=== PATIENT | female | born 1940 | race Caucasian/White ===

== ENCOUNTER 2017-10-28 11:20 | Day surgery (SDC) | payer MEDICARE, BC ==
[2017-10-25 13:30] VITALS: BMI 22.3
[2017-10-28] MEDS ORDERED: Propofol 200 MG/20 ML VIAL ONE (16:18)
--- NOTE | 2017-10-28 17:13 | OP ---
PREOPERATIVE DIAGNOSES: 1. History of polyposis syndrome. 2. History of greater than 10 polyps, colonoscopy last year. 3. History of malignant polyp in the past. POSTOPERATIVE DIAGNOSES: 1. Nine polyps scattered from the cecum to the sigmoid colon, removed by snare polypectomy and submi tted to Pathology. 2. One polyp site bleeding, Hemoclip placed to control hemorrhage. RECOMMENDATIONS: 1. Await histopathology. 2. Repeat colonoscopy in 1 year. ANESTHESIA: TIVA. PROCEDURE IN DETAIL: After the patient was informed of the risks, benefits, possible complications o f endoscopy including perforation, bleeding, reactions to medication and aspiration, informed consent was obtained. The patient was brought to endoscopy suite where she was sedated in gradual fashion. Once she was comfortable, a bite block was placed in incisural orifice. Once she was comfortable, r ectal examination was performed. The endoscope was advanced through anal canal through the colon. T he cecum was identified by ileocecal valve and appendiceal orifice. The scope was then slowly remove d. There was good visualization of mucosa. There were 4 polyps in the cecum, which were removed by snare polypectomy and submitted to Pathology. There were 2 in the ascending colon that removed by sn are polypectomy and submitted to Pathology. There was 1 in the transverse colon, removed by snare po lypectomy and submitted to Pathology and there were 2 in the sigmoid, removed by snare polypectomy an d submitted to Pathology. Retroflexed views in the rectum were normal. There was diverticulosis col i. The scope was removed and the patient was brought to recovery room in stable condition.
== END 2017-10-29 16:17 | disposition home or self-care (01) ==
LOC: SDC 11:20
PROVIDERS: ATTEND Internal Medicine Gastroenterology
PROC: 0DBK8ZX Excision of Ascending Colon, Via Natural or Artificial Opening Endoscopic, Diagnostic (ICD-10-PCS; principal; 2017-10-28)
PROC: 0DBN8ZX Excision of Sigmoid Colon, Via Natural or Artificial Opening Endoscopic, Diagnostic (ICD-10-PCS; 2017-10-28)
PROC: 0DBH8ZX Excision of Cecum, Via Natural or Artificial Opening Endoscopic, Diagnostic (ICD-10-PCS; 2017-10-28)
DX: Z12.11 Encounter for screening for malignant neoplasm of colon (principal); D12.3 Benign neoplasm of transverse colon; D12.5 Benign neoplasm of sigmoid colon; D12.0 Benign neoplasm of cecum; D12.2 Benign neoplasm of ascending colon; K57.30 Diverticulosis of large intestine without perforation or abscess without bleeding; I25.10 Atherosclerotic heart disease of native coronary artery without angina pectoris; J44.9 Chronic obstructive pulmonary disease, unspecified; E78.00 Pure hypercholesterolemia, unspecified; I10 Essential (primary) hypertension; I25.2 Old myocardial infarction; Z79.82 Long term (current) use of aspirin; Z79.899 Other long term (current) drug therapy; Z88.2 Allergy status to sulfonamides; Z88.8 Allergy status to other drugs, medicaments and biological substances; Z98.42 Cataract extraction status, left eye; Z98.41 Cataract extraction status, right eye; Z96.1 Presence of intraocular lens; Z98.890 Other specified postprocedural states; Z86.010 Personal history of colon polyps; Z87.891 Personal history of nicotine dependence; Z85.820 Personal history of malignant melanoma of skin
CPT/HCPCS: 88305; J2704

== ENCOUNTER 2018-12-31 09:12 | Outpatient (CLI) | payer MEDICARE, BC ==
--- NOTE | 2018-12-31 10:02 | RAD ---
TWO VIEW CHEST: Date: 12-31-18 Indication: Cough. FINDINGS: Lungs are hyperinflated. There is focal nodular density overlying the infralateral right chest. There is blunting of the posterior costophrenic sulci. Cardiac silhouette is of normal size. IMPRESSION: 1. COPD. 2. Nodular density overlying the inferolateral right chest. This may relate to a nipple shadow. Recom mend follow up with nipple markers in place for confirmation. Code T POS: IGNACIO
== END 2018-12-31 09:13 | disposition home or self-care (01) ==
LOC: SCSRAD 09:12
PROVIDERS: ATTEND Family Medicine
DX: J44.9 Chronic obstructive pulmonary disease, unspecified (principal); R05 Cough; J98.4 Other disorders of lung
CPT/HCPCS: 71046

== ENCOUNTER 2019-01-12 07:20 | Day surgery (SDC) | payer MEDICARE, BC ==
[2019-01-09 10:42] VITALS: BMI 22.1
--- NOTE | 2019-01-12 11:52 | OP ---
DATE OF PROCEDURE: 01/12/2019 PREPROCEDURE DIAGNOSES: 1. Prior history of malignant polyp. 2. History of polyposis syndrome. 3. Chronic obstructive pulmonary disease. POSTOPERATIVE DIAGNOSES: 1. Flat polyp was noted at the previous scar site at the just across the ileocecal valve at the level of the transition between the cecum and ileocecal valve. This was removed by hot snare polypectomy. 2. Smaller polyps were noted in the ascending colon, both removed by hot snare polypectomy 1. There is a bit of a burn to the mucosa and a clip was placed over this area. There was no signs of perforation. One more polyp was removed and retrieved from the descending colon and 2 small polyps were noted in the sigmoid and rectum, which were ablated. There was mild diverticulosis coli. No other lesions were seen. RECOMMENDATIONS: Await histopathology. Consider repeat colonoscopy 1 to 2 years based on pathology report. ANESTHESIA: TIVA. PROCEDURE IN DETAIL: The patient was informed of the risks, benefits, and possible complications of endoscopy including perforation, reaction to medication, and aspiration, informed consent was obtained. The patient was brought to the endoscopy suite, where she was sedated in gradual fashion. Once she was comfortable, a bite block was placed inside her orifice. The endoscope was advanced to the esophagus, stomach, and second and third portion of the duodenum and slowly removed. There was good visualization of the mucosa. There was no mass, lesions, or AV malformations. The colon was tortuous in the sigmoid region, diverticulosis was noted. The prep was good. The cecum was reached and noted by the ileocecal valve and appendiceal orifice. The scope was then slowly removed. There was a polyp at the distal proximal ileocecal valve, an area of slight scar consistent with probably a recurrent previous polypectomy site. This was removed by hot snare polypectomy and the lesion seemed completely removed. Another polyp was noted in the mid proximal ascending colon, freed by hot snare polypectomies about 5 mm in size. There was a little bit of serosal burn in this area. Therefore, clip was placed over the area. Normal tissue grasped and heaped up. There was no signs of perforation. Descending colon polyp was removed and submitted to Pathology and then 2 sigmoid and rectosigmoid polyps removed by hot snare polypectomy, abated, but not retrieved. Retroflexed views were normal. The scope was removed. The patient tolerated the procedure well without complications. Job ID: [id number]
== END 2019-01-12 10:26 | disposition home or self-care (01) ==
LOC: SDC 07:20
PROVIDERS: ATTEND Internal Medicine Gastroenterology
PROC: 0DBK8ZX Excision of Ascending Colon, Via Natural or Artificial Opening Endoscopic, Diagnostic (ICD-10-PCS; principal; 2019-01-12)
PROC: 0DBN8ZX Excision of Sigmoid Colon, Via Natural or Artificial Opening Endoscopic, Diagnostic (ICD-10-PCS; 2019-01-12)
PROC: 0DBP8ZZ Excision of Rectum, Via Natural or Artificial Opening Endoscopic (ICD-10-PCS; 2019-01-12)
PROC: 0DBH8ZX Excision of Cecum, Via Natural or Artificial Opening Endoscopic, Diagnostic (ICD-10-PCS; 2019-01-12)
PROC: 0DBM8ZX Excision of Descending Colon, Via Natural or Artificial Opening Endoscopic, Diagnostic (ICD-10-PCS; 2019-01-12)
DX: Z12.11 Encounter for screening for malignant neoplasm of colon (principal); D12.2 Benign neoplasm of ascending colon; D12.4 Benign neoplasm of descending colon; K63.5 Polyp of colon; J44.9 Chronic obstructive pulmonary disease, unspecified; K57.30 Diverticulosis of large intestine without perforation or abscess without bleeding; E78.5 Hyperlipidemia, unspecified; I10 Essential (primary) hypertension; I25.2 Old myocardial infarction; I25.10 Atherosclerotic heart disease of native coronary artery without angina pectoris; E78.00 Pure hypercholesterolemia, unspecified; Z86.010 Personal history of colon polyps; Z87.19 Personal history of other diseases of the digestive system; Z87.891 Personal history of nicotine dependence; Z79.899 Other long term (current) drug therapy; Z88.2 Allergy status to sulfonamides; Z88.5 Allergy status to narcotic agent
CPT/HCPCS: 88305

== ENCOUNTER 2019-01-17 15:49 | Inpatient (IN) | payer MEDICARE, BC ==
[2019-01-17] MEDS ORDERED: Magnesium Sulfate 2 GM/NS 0.9% 50 ML BAG ONE (16:20)
[2019-01-17] MEDS ORDERED: methylPREDNISolone Sod Succ/PF 125 MG/2 ML VIAL ONE (16:20)
[2019-01-17] MEDS ORDERED: cefTRIAXone\\ROCEPHIN 1 GM VIAL ONE (16:20)
[2019-01-17] MEDS ORDERED: Water For Inject, Bacteriostat 30 ML ONE (16:21)
[2019-01-17 16:25] LABS: #Basophils 0.2 thou/uL (0.0-0.2); #Lymphocytes 0.8 thou/uL (1.20-3.40); #Monocytes 0.8 thou/uL (0.11-0.59); #Neutrophils 13.7 thou/uL (1.40-6.50); %Eosinophils 0.1 % (0.0-10.0); %Monocytes 5.4 % (0.0-10.0); %Neutrophils 88.5 % (42.0-75.0); Hemoglobin 14.9 g/dL (12.0-16.0); Mean Corpuscular HGB CONC 33.3 g/dL (32.0-36.0); Mean Corpuscular Hemoglobin 31.8 pg (27.0-31.0); Mean Corpuscular Volume 95.3 fL (78.0-98.0); Mean Platelet Volume 9.7 fL (7.4-10.4); Platelet Count 205 thou/uL (130-400); RBC Distribution Width 12.8 % (11.5-14.5); White Blood Cell (WBC) Count 15.5 thou/uL (4.8-10.8)
[2019-01-17 16:38] LABS: ALT (SGPT) 10 U/L (8-55); AST (SGOT) 11 U/L (5-34); Albumin 3.8 g/dL (3.4-4.8); Alkaline Phosphatase 91 U/L (40-150); Anion Gap 18 mmol/L (10-20); BUN (Urea Nitrogen) 17 mg/dL (9.8-20.1); Bilirubin, Total 1.3 mg/dL (0.2-1.2); CK (CPK) 56 U/L (29-168); Calc. Creatinine Clearance 0 mL/min (70-130); Calcium 10.1 mg/dL (7.8-10.44); Carbon Dioxide 25 mmol/L (23-31); Chloride 98 mmol/L (98-107); Estimated GFR-MDRD 58; Globulin 3.7 g/dL (2.4-3.5); Glucose 154 mg/dL (83-110); Potassium 4.4 mmol/L (3.5-5.1); Protein, Total 7.5 g/dL (6.0-8.3); Sodium 137 mmol/L (136-145)
--- NOTE | 2019-01-17 16:45 | RAD ---
CHEST ONE VIEW: 01/17/19 HISTORY: Dyspnea. FINDINGS: Cardiac silhouette is magnified by projection. Pulmonary vasculature is unremarkable. Lungs remain h yperinflated. Mediastinum is midline with aortic calcification. No lobar consolidation. Calcified gra nulomata are consistent with healed granulomatous disease. monitor worker leads overlie the chest. IMPRESSION: Pulmonary hyperinflation. Chronic type findings are stable. POS: [facility]
[2019-01-17] MEDS ORDERED: Ondansetron PF 4 MG/2 ML Vial IVP PRN (18:28)
[2019-01-17] MEDS ORDERED: Acetaminophen 325 MG TAB PO PRN (18:28)
[2019-01-17] MEDS ORDERED: D5 1/2 NS w/20 mEq KCL 1,000 ML IV SCH (18:30)
[2019-01-17] MEDS ORDERED: Albuterol Sulfate 2.5 mg/0.5 ml Neb NEB PRN (18:32)
--- NOTE | 2019-01-17 21:17 | HP ---
PRIMARY CARE PHYSICIAN: Dr. Levi Rodrigues. CHIEF COMPLAINT: Cough and shortness of breath. HISTORY OF PRESENT ILLNESS: This is an 78-year-old female, patient of Dr. Levi Rodrigues, with a long history of COPD and hypertension, several admissions in the past for COPD exacerbation, presents to the emergency department today with complaints of worsening shortness of breath. The patient is followed by Dr. Chapa on an outpatient for her COPD. She was recently seen in Dr. Levi Rodrigues's office on 12/30/2018 with upper respiratory type symptoms. She was treated for maxillary sinusitis with Levaquin and prednisone taper. A chest x-ray was done at that time, which showed no active disease and she apparently recovered over the past several days. She and her [id number] state that she has been getting more and more short of breath, having more problems with breathing. In the emergency department, she was found to be severely hypoxic, down to the 80%. She was started on BiPAP by the ER physician and had significant improvement of her symptoms. She was also given steroids, neb treatments, and oxygen therapy and she is feeling much better at this time. She is now being admitted for further evaluation and treatment of her COPD exacerbation. PAST MEDICAL HISTORY: COPD, known coronary artery disease, peripheral vascular disease, hypertension, and memory loss with Alzheimer dementia. MEDICATIONS: Include, 1. Namenda 10 mg daily. 2. Recent prednisone taper. 3. Centrum Silver daily. 4. Aspirin 81 mg daily. 5. Vitamin E one daily. 6. Glucosamine daily. 7. Spiriva daily. 8. Calcium with vitamin D daily. 9. Symbicort 160/4.5 daily. 10. Simvastatin 20 mg daily. 11. Amlodipine 5 mg daily. 12. Furosemide 40 mg daily p.r.n. 13. ProAir p.r.n. 14. Ipratropium-albuterol p.r.n. ALLERGIES: TO VALIUM AND NARCOTICS. IMMUNIZATIONS: Flu shot is up-to-date. Pneumonia and Prevnar, up-to-date. PAST SURGICAL HISTORY: Colonoscopy in 2007. Last colonoscopy in December 2018 for polyposis syndrome and history of malignant polyp. FAMILY HISTORY: Father with heart disease. Mother with possible heart disease as well. SOCIAL HISTORY: Quit smoking in 2012. No drugs. No other alcohol use. She is a retired marketing secretary. She is . She has children, who live next door, but she lives alone most of the time. REVIEW OF SYSTEMS: As per the history of present illness. CONSTITUTIONAL: She denies any recent fevers or chills. HEENT: She does have a recent episode of sinusitis 2 to 3 weeks ago. CARDIAC: Denies chest pain or palpitations. PULMONARY: Positive cough. Positive shortness of breath. Positive dyspnea on exertion. GI: No nausea, vomiting, abdominal pain, melena, or hematochezia. : Denies dysuria. NEUROLOGIC: No weakness, seizures, or syncope. PHYSICAL EXAMINATION: VITAL SIGNS: Temperature 98.1, pulse of 92, respirations 27, pulse ox is 97% on BiPAP, and blood pressure 130/80. GENERAL: She is awake and alert. She is in moderate distress with her breathing. HEENT: Her mucosa is moist. NECK: Supple. No JVD or adenopathy. HEART: Tachycardic. LUNGS: With prolonged expiratory phase with rhonchi and expiratory wheezes bilaterally. ABDOMEN: Soft, nontender, nondistended. No hepatosplenomegaly. EXTREMITIES: No clubbing, cyanosis, or edema. 2+ peripheral pulses bilaterally. No calf tenderness. LABORATORY DATA: Sodium 137, potassium 4.4, chloride 98, CO2 of 25, BUN and creatinine are 17 and 0.93 with a GFR of 58, serum glucose of 154, lactic acid of 2.1, and calcium of 10.1. AST and ALT are normal. Troponin I is less than 0.01. White blood cell count 15,500, hemoglobin and hematocrit are 14.9 and 44.8, and platelets of 205. IMAGING DATA: Again, chest x-ray showed pulmonary hyperinflation and chronic changes, no acute pneumonia. ASSESSMENT/PLAN: 1. This is an 78-year-old female patient with chronic obstructive pulmonary disease exacerbation. Plan; agree with BiPAP, hopefully just overnight and we would be able to wean in the morning. Await Pulmonary evaluation. Continue steroids, antibiotic, and neb treatment as well as oxygen therapy. 2. History of familial polyposis. Follow up with Dr. Campuzano as an outpatient. 3. Dementia. We will continue Namenda at this time. 4. Hypertension. We will continue her amlodipine and clonidine p.r.n. We will hold off on beta-jerald due to her chronic obstructive pulmonary disease exacerbation. 5. Coronary artery disease, appears to be stable. We will continue simvastatin and aspirin. 6. Deep venous thrombosis prevention with subcu Lovenox. 7. Gastrointestinal protection with Protonix. 8. Code status discussed with the patient, [id number], and son and she desires to be a full code and states that medical power of contracts attorney and advanced directives are in place. 9. Disposition. Hopefully, will be able to discharge home soon. We will arrange home health for further assistance. Job ID: [id number]
[2019-01-17] MEDS: methylPREDNISolone Sod Succ/PF 125 MG/2 ML VIAL IVP SCH (21:25)
[2019-01-17] MEDS: Atorvastatin Calcium 10 MG TAB PO SCH (21:26)
[2019-01-18] MEDS: methylPREDNISolone Sod Succ/PF 125 MG/2 ML VIAL IVP SCH (03:29)
[2019-01-18 04:06] LABS: Bilirubin Negative (Negative); Blood, Urine Negative (Negative); Clarity CLEAR (Clear); Glucose, Urine (Dipstick) Negative (Negative); Leukocyte Trace (Negative); Nitrite Negative (Negative); Protein, Urine (Dipstick) 30 mg/dL (Neg-Trace); Specific Gravity, Urine 1.025 (1.002-1.036); pH, Urine 5.5 (5.0-9.0)
[2019-01-18 04:11] LABS: Bacteria/HPF None Seen HPF (None Seen); Squamous Epithelial 0-3 HPF (0-3)
[2019-01-18 04:18] LABS: Pathc Cast-AUWi Flag 2.61 (0-2.49)
[2019-01-18 04:46] LABS: Other Casts/LPF None Seen LPF (0-3 Hyaline); RBC/HPF 0-3 HPF (0-3)
[2019-01-18 04:47] LABS: Renal Epithelial 0-3 HPF (0-3); Transitional Epithelial NONE SEEN HPF (0-3)
[2019-01-18 07:08] LABS: Anion Gap 16 mmol/L (10-20); BUN (Urea Nitrogen) 23 mg/dL (9.8-20.1); Calc. Creatinine Clearance 45 mL/min (70-130); Calcium 8.9 mg/dL (7.8-10.44); Carbon Dioxide 22 mmol/L (23-31); Chloride 104 mmol/L (98-107); Estimated GFR-MDRD 68; Glucose 149 mg/dL (83-110); Potassium 4.8 mmol/L (3.5-5.1); Sodium 137 mmol/L (136-145)
--- NOTE | 2019-01-18 08:39 | RAD ---
CHEST 1 VIEW: Date: 01/18/19 HISTORY: COPD. Dyspnea. Follow-up. COMPARISON: 01/17/19. FINDINGS: Cardiac silhouette is magnified by projection. Pulmonary vasculature is unremarkable. Lungs remain hy perinflated with flattening of each hemidiaphragm. No evidence of pneumothorax. Mediastinum is midlin e with aortic calcification. quality assurance monitor body leads overlie the chest. IMPRESSION: Pulmonary hyperinflation. Chronic-type findings are stable. POS: [facility]
[2019-01-18] MEDS ORDERED: Vitamin E 400 UNITS CAP PO SCH (09:00)
[2019-01-18] MEDS ORDERED: Amlodipine 5 MG TAB PO SCH (09:00)
[2019-01-18] MEDS ORDERED: Aspirin Chewable 81 MG TAB PO SCH (09:00)
[2019-01-18] MEDS: Enoxaparin Sodium 40 MG/0.4 ML SYRINGE SC SCH (09:13)
[2019-01-18 09:16] LABS: #Lymphocytes 0.4 thou/uL (1.20-3.40); #Monocytes 0.1 thou/uL (0.11-0.59); #Neutrophils 9.1 thou/uL (1.40-6.50); %Basophils 0.2 % (0.0-1.0); %Eosinophils 0.1 % (0.0-10.0); %Lymphocytes 4.3 % (21.0-51.0); %Monocytes 1.1 % (0.0-10.0); %Neutrophils 94.3 % (42.0-75.0); Hemoglobin 12.9 g/dL (12.0-16.0); Mean Corpuscular HGB CONC 31.3 g/dL (32.0-36.0); Mean Corpuscular Hemoglobin 31.6 pg (27.0-31.0); Mean Platelet Volume 9.2 fL (7.4-10.4); Platelet Count 195 thou/uL (130-400); RBC Distribution Width 12.3 % (11.5-14.5); Red Blood Cell (RBC) Count 4.08 mill/uL (4.20-5.40); White Blood Cell (WBC) Count 9.6 thou/uL (4.8-10.8)
--- NOTE | 2019-01-18 10:45 | PRG ---
DATE OF SERVICE: 01/18/2019 SUBJECTIVE: The patient is feeling significantly better. She continues to have some conversational dyspnea, but overall her breathing more at ease. Denies chest pain. Improved cough. No fevers or chills. OBJECTIVE: VITAL SIGNS: Temperature 96.9, pulse is 73, respirations 22, blood pressure 131/54, and pulse ox is 95% on 2 L. GENERAL: She is awake and alert. Mild conversational dyspnea. NECK: Supple. Some retractions. HEART: Regular rate and rhythm. LUNGS: Distant, but no wheeze, rales, or rhonchi. ABDOMEN: Soft. EXTREMITIES: No edema. LABORATORY DATA: White blood cell count down to 9600, hemoglobin and hematocrit 12.9 and 41.2, and platelets of 195. Sodium 137, potassium 4.8, chloride 104, CO2 of 22, BUN and creatinine 23 and 0.81 with a GFR of 68, serum glucose of 149, and calcium of 8.9. IMAGING DATA: Chest x-ray reveals hyperinflated lungs, no infiltrate. ASSESSMENT AND PLAN: This is an 78-year-old female patient with known chronic obstructive pulmonary disease, admitted with chronic obstructive pulmonary disease exacerbation, respiratory distress, and hypoxemia. 1. Chronic obstructive pulmonary disease exacerbation has improved. She is able to wean off the BiPAP. We will continue steroids, antibiotic, and neb treatments and oxygen. 2. History of familial polyposis. Follow up with Dr. Campuzano as an outpatient. 3. Hypertension is stable. We will continue to hold off her beta-blockers. 4. Coronary artery disease is stable on simvastatin and aspirin. 5. Continue GI protection with Protonix as she is on steroids. 6. Disposition. Family does want home health. We will have case management work with her on that and transfer to the floor while she continues to improve. Job ID: [id number]
[2019-01-18] MEDS ORDERED: Iopamidol 370 76% 50 ML VIAL FS ONE (10:51)
[2019-01-18] MEDS ORDERED: ISOVUE-370 76%-LOCM 1 ML ONE (10:51)
[2019-01-18] MEDS ORDERED: metroNIDAZOLE 500 MG in Premix Bag 1 BAG IVPB SCH (14:15)
[2019-01-18] MEDS: Fentanyl 100 MCG/2 ML VIAL SLOW IVP PRN ×2 (14:19→17:19)
[2019-01-18] MEDS ORDERED: PHENYLEPHRINE-NS 100 MCG/ML 10 ML SYRINGE ONE (14:38)
[2019-01-18] MEDS ORDERED: Rocuronium Bromide 10 MG/ML (10ML VIAL) ONE (14:38)
[2019-01-18] MEDS ORDERED: Succinylcholine Chloride 20 MG/ML 10 ml SYRINGE FS ONE (14:38)
--- NOTE | 2019-01-18 16:19 | CON ---
DATE OF CONSULTATION: 01/18/2019 SERVICE: Pulmonary Medicine. REASON FOR CONSULTATION: IMCU patient. HISTORY OF PRESENT ILLNESS: The patient is an 78-year-old white female with past medical history significant for dementia and severe COPD. She is in her usual state of health until about 4 to 5 days prior to admission when she basically had an aversion for food. Her family takes very good care of her. They put a meal in front of her every single day. Roughly 3 days ago, she stopped taking any p.o. intake, whatsoever. She was doing fine until she started having some abdominal discomfort about 2 days prior to presentation. She indicates having a little nausea without vomiting. She denies having passed any gas or having any bowel movements. The history is a little bit challenging to get because she does have some cognitive impairment, and I am relying on family members to help me with this. Either way , she started having increasing difficulty with breathing. There was concern for COPD exacerbation, she was subsequently tucked into the [facility] on BiPAP. She currently denies any fevers or chills, otherwise. She had a little bit of food. She did not eat much of it, however. PAST MEDICAL HISTORY: 1. COPD, severe. 2. Coronary artery disease. 3. Peripheral vascular disease. 4. Hypertension. 5. Dementia. PAST SURGICAL HISTORY: Colonoscopy. FAMILY HISTORY: Noncontributory. SOCIAL HISTORY: She has a greater than [id number]-[id number] history of smoking, but quit in 2012. She denies any alcohol or illicit drugs. She is a retired company secretary. She has no exposure to chemicals, dust, asbestos, or tuberculosis. ALLERGIES: 1. VALIUM. 2. NARCOTICS. MEDICATIONS: List of her inpatient medications was reviewed. Multiple updates were made. REVIEW OF SYSTEMS: General; head, ears, eyes, nose, throat; cardiovascular; respiratory; GI; ; musculoskeletal; neurologic; and skin are negative except as mentioned in the HPI. PHYSICAL EXAMINATION: VITAL SIGNS: Afebrile, pulse 100, blood pressure 152/65, respirations 37, saturation 96% on 2 L nasal cannula. GENERAL: The patient is awake and alert, in no apparent distress. LUNGS: Very reduced air entry. There is a prolonged expiratory phase. I do not hear any wheezing or crackles. HEART: Normal rate, regular. ABDOMEN: Soft. It is tender to palpation throughout, but more severe in the right lower quadrant. She has peritoneal signs including rebound and pain with percussion of the right lower quadrant. Bowel sounds are absent. : No Damon catheter. NEUROLOGIC: Grossly nonfocal. LABORATORY DATA: WBC 9.6, down from 15.5. Neutrophil count is actually 94%. Hemoglobin 12.9, platelets 195,000. Creatinine 0.81. Basic metabolic profile is otherwise unremarkable. Lactate is unremarkable. Urinalysis is unremarkable. Blood cultures x2 and influenza A and B are negative. IMAGING DATA: Chest x-ray demonstrates no acute cardiopulmonary abnormality. There is hyperexpansion of bilateral lung shay. ASSESSMENT: 1. Acute hypoxic respiratory failure. 2. Chronic obstructive pulmonary disease with acute exacerbation. 3. Abdominal pain in the right lower quadrant with peritoneal signs. DISCUSSION AND PLAN: My fear is that she has appendicitis. We are going to do a CT of the abdomen with p.o. and IV contrast, so we can delineate whether or not there is any abnormality there. If so, Surgical consultation will be placed. We will start treating the COPD exacerbation with antibiotics, nebulized medications, and steroids. I will start the antibiotics directed in abdominal process. The patient has horrendous COPD. As such, belly infection is more than enough to create an exacerbation. I think her physical exam findings might be blunted by her dementia and the very significant dose of steroids that she was receiving. Pulmonary/Critical Care will continue to follow along in this location. 70 minutes have been devoted to this patient in various activities. I personally reviewed all imaging studies and laboratory data noted within this document. For fifty percent of this time, I was interacting with the patient at the bedside or coordinating care with the care team. For the remainder of the time I was immediately available to the patient in the hospital unit. Job ID: [id number] [facility]
--- NOTE | 2019-01-18 17:19 | CT ---
CT ABDOMEN AND PELVIS WITH CONTRAST: HISTORY: Right lower quadrant pain that started yesterday. TECHNIQUE: Contrast enhanced CT images of the abdomen and pelvis are obtained. FINDINGS: The lung bases are unremarkable. There is extensive free intraperitoneal air seen. The liver and spleen are unremarkable. The gallbladder may contain some small calculi in the depende nt portion. The pancreas is unremarkable. The adrenal glands and kidneys are unremarkable. There is a large surgical clip or foreign body in the ascending colon. No evidence of bowel obstruction is seen. A normal appendix is visualized. The pelvis is unremarkable. An incidentally noted small hepatic hemangioma is present, unchanged since previous CT from 7. IMPRESSION: 1. Large amount of free intraperitoneal air. 2. Findings compatible with likely cholelithiasis. POS: H
[2019-01-18] MEDS ORDERED: Promethazine HCl 25 MG/ML VIAL IM PRN (17:54)
[2019-01-18] MEDS ORDERED: Promethazine HCl 25 MG/ML VIAL SLOW IVP PRN (17:54)
[2019-01-18] MEDS ORDERED: Ondansetron HCl/PF 4 MG/2 ML Vial IVP PRN (17:54)
[2019-01-18] MEDS ORDERED: Bupivacaine/Epinephrine 0.25% 30 ML VIAL ONE (17:55)
[2019-01-18] MEDS ORDERED: cefOXitin 2 GM in Sodium Chloride 0.9% 100 ML IVPB SCH (18:00)
[2019-01-18] MEDS ORDERED: Fentanyl 100 MCG/2 ML VIAL ONE (18:06)
--- NOTE | 2019-01-18 19:12 | PRG ---
DATE OF SERVICE: 01/18/2019 SUBJECTIVE: Dr. Cisneros just called me about an hour ago. Ms. Downey had been in the hospital since yesterday with COPD exacerbation. Today, she had acute abdominal pain and was found to have free air in the abdomen on a CAT scan. There are also gallstones. There is no comment on stranding or fluid or inflammation in the abdominal cavity. On my review of the film I do not see much there. She is presently getting prepaired for surgery. OBJECTIVE: VITAL SIGNS: Her temperature is 97.6. Her heart rate is about 100 to 102 from a baseline of 70 to 80, blood pressure 160/74. GENERAL: She is alert and oriented. She is nauseated and throwing up, she just had. ABDOMEN: Tender in the right abdomen. She is able to tell me it is tender there. LABORATORY DATA: Her white count was 15,000 yesterday, was 9000 today with no overt bandemia noted. Electrolytes are normal. Comprehensive metabolic profile yesterday was normal. ASSESSMENT: Free abdominal air. She had a colonoscopy almost exactly a week ago with several polyps taken off. She is still undergoing survellance colonoscopy as she has a polyposis syndrome and had 5 to 9 polyps removed yearly. She has had a previously malignant polyp removed. We did place a resolution clip over one of the polypectomy sites in the right colon that was larger, but there were no signs of free perforation at time of exam. Interestingly, she was admitted not for pain but with COPD exacerbation and positive-pressure BiPAP last night. It was not until this morning she developed severe pain, but I suspected that probably is related to weakening and perforation on one of the polypectomy sites. Talked about this with her family. I agreed with her having surgery . I do not think we can just observe this and treat with antibiotics and I agree with Dr. Richards's assessment and plan to move to the operating room. I will follow along during this hospitalization. Job ID: [id number] [facility]
[2019-01-18] MEDS ORDERED: Midazolam HCl 2 mg/2 ml Vial ONE (20:40)
[2019-01-18 21:50] LABS: Actual Bicarbonate (HCO3a) 22.2 mEq/L (22-28); Analyzer IN Cardio ER; Base Excess (BEa) -2.8 mEq/L (-2.0 to +3.0); CO2 Tension 39.2 mmHg (35.0-45.0); Calcium, Ionized 1.07 mmol/L (1.12-1.30); Carboxyhemoglobin (COHb) 0.2 gm% (0.0-3.0); Hemoglobin (Hb) 12.5 g/dL (12.0-16.0); O2 Tension (PaO2) 119.5 mmHg (> 60.0); Potassium - ABG Lab 4.16 mmol/L (3.70-5.30); pH, Arterial 7.37 (7.35-7.45)
[2019-01-18 21:52] LABS: Puncture Site RBRACH
[2019-01-18] MEDS ORDERED: SYSTANE 3.5 GM TUBE EA EYE PRN (21:57)
[2019-01-18] MEDS ORDERED: Ventilator Sedation Protocol 1 EACH FS SCH (22:00)
[2019-01-18] MEDS ORDERED: DISCONTINUE PREVIOUS NARCOTIC PAIN MEDICATIONS AND BENZODIAZEPINES FS SCH (22:14)
[2019-01-18] MEDS ORDERED: fentaNYL Citrate/PF 2,000 MCG in Sodium Chloride 0.9% 60 ML IV SCH (22:14)
[2019-01-18] MEDS ORDERED: Propofol 1,000 MG/100 ML VIAL IV PRN (22:14)
[2019-01-18] MEDS ORDERED: Lorazepam 2 MG/ML VIAL SLOW IVP PRN (22:14)
[2019-01-18] MEDS ORDERED: Fentanyl BOLUS 250 ML IVPB PRN (22:14)
[2019-01-18] MEDS ORDERED: Propofol BOLUS 1,000 MG/100 ML VIAL IV PRN (22:14)
--- NOTE | 2019-01-18 22:21 | PRG ---
DATE OF SERVICE: 01/18/2019 SERVICE: Pulmonary Medicine. INTERVAL HISTORY: The patient cannot provide me any interval history at this point. That being said, because of her exquisite tenderness in the belly, we did a CT scan. This demonstrated extensive amounts of free air. We ultimately sent her down to the operating room. She came back intubated. She currently cannot provide any additional elements of the history. She did well through the surgery. She underwent a right hemicolectomy. She is recovering very nicely. PHYSICAL EXAMINATION: VITAL SIGNS: Afebrile, pulse 99, blood pressure 148/71, respirations 33, saturation is 100% on 27% FiO2. HEENT: Normocephalic and atraumatic. Sclerae white. Conjunctivae pink. Oral mucosa is moist without lesions. LUNGS: Excellent air entry. There is a prolonged expiratory phase. Polyphonic wheezing, and minimal rhonchi are present. HEART: Normal rate. Regular. ABDOMEN: Soft. Nontender, nondistended. Bowel sounds are absent. GENITOURINARY: Damon catheter in place. NEUROLOGIC: Grossly nonfocal. Next section. LABORATORY DATA: Laboratories following the procedure on the settings, which show, pH 7.37, pCO2 39, PO2 120, on 23% FiO2. Blood cultures x2, and influenza A and B are unremarkable. ASSESSMENT: 1. Acute hypoxic respiratory failure. 2. Chronic obstructive pulmonary disease with acute exacerbation. 3. Gross peritonitis secondary to perforated viscus, status post right hemicolectomy, postop day 0. 4. Severe sepsis. 5. Dementia. DISCUSSION/PLAN: The patient will remain on mechanical ventilation. We will back off on her rate of breathing to allow her to pick and shovel man a little bit of work of breathing. We will continue our nebulized medications, steroids, and antibiotics directed at GI issues. We will watch for increasing signs of sepsis. If present, empiric antifungal medications will be considered. Pulmonary Critical Care will continue to follow very closely. CRITICAL CARE TIME: 30 minutes. Job ID: [id number]
[2019-01-18] MEDS: metroNIDAZOLE 500 MG in Premix Bag 1 BAG IVPB SCH (23:00)
[2019-01-18] MEDS: Sodium Chloride 0.45% 1,000 ML IV SCH (23:02)
--- NOTE | 2019-01-18 23:49 | PDOC.OP ---
Operative Note - Operative Note Operative Note: PROCEDURE: Laparoscopic hand-assisted right colectomy DATE OF PROCEDURE: 01/18/2019 SURGEON: Benito Richards M.D. PREOPERATIVE DIAGNOSES: Bowel perforation POSTOPERATIVE DIAGNOSIS: Right colon perforation HISTORY: Patient with multiple polyps including a malignant polyp removed in the past. She underwent colonoscopy 6 days ago and came into the hospital with worsening shortness of breath. She was noted this afternoon to have abdominal pain and tenderness and a CT showed free air. Recommendation was made to proceed to the operating room emergently. PROCEDURE IN DETAIL: After informed consent was obtained and appropriate preoperative and buttocks were administered the patient was taken to the operating room. She was placed in supine position and general endotracheal anesthesia was administered. Her stomach was decompressed with an OG tube and her bladder was decompressed with a Damon catheter and she was prepped and draped in standard sterile fashion. Local anesthesia was infused the skin and subcutaneous tissues at the level of the umbilicus and a transverse skin incision was made. The fascia was incised and the peritoneal cavity entered. A 5 mm trocar was placed and carbon dioxide gas insufflated to an intra-abdominal pressure of 15 which the patient tolerated well. The laparoscope was advanced into the abdominal cavity which was carefully examined. The patient was noted to have fecal staining near the hepatic flexure with omental adhesions overlying the colon in this area consistent with a partially contained perforation. The colonic tissue surrounding the perforation appeared to inflamed and contaminated to attempt a primary repair so the decision was made to proceed with laparoscopic hand-assisted right colectomy. A 6 cm periumbilical incision was made and dissection carried down to the fascia which was incised in the midline. A wound protector and GelPort was placed and additional dissecting trochars placed in the epigastric and suprapubic locations under direct laparoscopic vision. The white line of Toldt was incised laterally and the right colon mobilized medially. The duodenum was identified and carefully avoided as the hepatic flexure was mobilized. Once the colon was mobilized medially the entire specimen was brought out through the wound protector and the perforation site sutured closed to prevent further contamination. The distal ileum and transverse colon were brought together along their antimesenteric edges with a Lembert suture and enterotomies created. A ALISHA stapler was advanced into the lumen of each and a [id number] wide stapled anastomosis created. Another load of the stapler was then advanced across the anastomosis excluding the enterotomies and fired transversely completing the anastomosis. The enterotomies were clamped shut with Allis clamps and mesentery divided with LigaSure. The specimen was passed from the table and the staple line imbricated with Lembert sutures. The anastomosis was palpated and was widely patent. The mesenteric defect was closed and the bowel was returned to the abdominal cavity. The GelPort was replaced in the abdominal cavity was copiously irrigated with 3 L of normal saline until all return was clear. A SATYA drain was placed through the suprapubic port down into the pelvis and up into the right paracolic gutter area. Hemostasis at the operative site was verified and the bowel was returned to its normal anatomic position. The epigastric trocar was removed and hemostasis verified. The wound protector was then removed and Seprafilm placed underlying the periumbilical incision. Clean gloves and instruments were used for the fascial closure. The fascia was closed with a running PDS suture with excellent technical result. The wound was then copiously irrigated with warm normal saline and the skin incisions closed with running 4-0 Monocryl sutures. Gauze and Tegaderm dressing was placed at the SATYA exit site and the patient was taken intubated to the CCU for recovery. Estimated blood loss was minimal. There were no complications. Specimen is right colon.
--- NOTE | 2019-01-19 00:15 | CON ---
DATE OF CONSULTATION: REASON FOR CONSULT: Free air. HISTORY OF PRESENT ILLNESS: Ms. Downey is an 78-year-old woman with severe COPD. She also has a history of polyposis and has had a malignant polyp removed in the past. She gets colonoscopies about every year and had one just under a week ago. Her family states that for the past four days she has not really been eating well. The patient came in with chief complaint of shortness of breath and was found to be hypoxic. She was placed on steroids and nebulizers, and her breathing has significantly improved, but this afternoon she started complaining of abdominal pain. Her family states that she has not been complaining of abdominal pain prior to this and her nurse confirms this. She was getting up and moving around without problems this morning. Dr. Cisneros was consulted for her COPD and when he examined her, she had significant abdominal tenderness, so he sent her for a CT of the abdomen and pelvis, which showed free air in the abdomen. The source is not evident. She did receive oral contrast and the stomach is well distended without evidence of extravasation. There does not appear to be free fluid and the patient has not been febrile. PAST MEDICAL HISTORY: Severe COPD, coronary artery disease, status post an MN, managed medically over a decade ago, hypertension, and Alzheimer's. PAST SURGICAL HISTORY: None. OUTPATIENT MEDICATIONS: Include 1. Namenda. 2. Prednisone. 3. Aspirin. 4. Spiriva. 5. Symbicort. 6. Simvastatin. 7. Amlodipine. 8. Lasix. 9. ProAir. 10. Ipratropium/albuterol. 11. Multiple vitamins and supplements. ALLERGIES: SHE REPORTS ALLERGY TO VALIUM AND NARCOTICS. FAMILY HISTORY: Heart disease. SOCIAL HISTORY: Former smoker, who quit five years ago. No drug or alcohol use. REVIEW OF SYSTEMS: Negative except per HPI. No nausea, vomiting, or diarrhea. PHYSICAL EXAMINATION: VITAL SIGNS: The patient is afebrile. Heart rate is in the low 100s, which is a change from early on her hospital stay when it was mostly in the 70s and 80s. Blood pressure is elevated at 160/74. She is 95% saturated. GENERAL: Reveals a frail elderly woman, in no acute distress. She is pleasant and cooperative. She is not diaphoretic, toxic or flushed in appearance. HEENT: Unremarkable. NECK: Supple without lymphadenopathy. HEART: Regular in its rhythm, but slightly tachycardic. Breath sounds are very distant and she has expiratory wheezing bilaterally. ABDOMEN: Soft, slightly distended and tender to palpation, more on the right than the left. She does not exhibit rigidity, rebound, or guarding, however. No palpable masses or hernias. No surgical scars. EXTREMITIES: Warm and well perfused without edema. NEURO: No focal deficits. PSYCHIATRIC: Alert and cooperative, but demented and unable to give detailed history. LABORATORY DATA: White count was slightly elevated on admission at 15.5 and this is down to 9.6 this morning, although she still had a left shift. Hematocrit is 41 and platelets are 195. Electrolytes are unremarkable and lactate is normal as were troponins. UA showed trace ketones and leukocyte esterase and white blood cells on admission. CT images are reviewed and I agree with the verbal report. She has had two chest x-rays during this admission, none of which showed visible free air. ASSESSMENT: Likely bowel perforation, possibly related to recent polypectomy. PLAN: Laparoscopy for diagnosis of the source of the perforation with treatment to be determined by the source. If this is a gastric perforation, then likely Levi patch repair can be done laparoscopically. However, there is no evidence of extravasation of contrast on CT from the stomach, which was fairly well distended. If the patient has a small bowel or colon injury then repair or resection will be necessary. This will likely require at least a hand port placement and possible open surgery. If a colon perforation is found and there is significant contamination, or if it is on the left side, then colostomy or ileostomy may be necessary. This could potentially be reversed if the patient's medical condition permits, but she is fairly frail with significant pulmonary disease, so this could end up being permanent. Inherent risks of the surgery include, but are not limited to bleeding, infection, risks of anesthesia, difficulty weaning off the ventilator and need for other operations or ostomy. The patient and her family understand that she will most likely not be extubated immediately postoperatively, but will likely require ventilator support for a period of time postoperatively. She is relatively high risk for surgery, but unfortunately, there are not any good alternatives. Job ID: [id number]
[2019-01-19] MEDS: Morphine 2 MG/ML SYRINGE SLOW IVP PRN ×5 (01:02→08:23)
[2019-01-19] MEDS: metroNIDAZOLE 500 MG in Premix Bag 1 BAG IVPB SCH ×3 (05:33→21:48)
[2019-01-19] MEDS: Atorvastatin Calcium 10 MG TAB PO SCH (05:39)
[2019-01-19 06:42] LABS: #Lymphocytes 0.6 thou/uL (1.20-3.40); #Monocytes 0.4 thou/uL (0.11-0.59); #Neutrophils 9.8 thou/uL (1.40-6.50); %Basophils 0.1 % (0.0-1.0); %Eosinophils 0.1 % (0.0-10.0); %Lymphocytes 5.5 % (21.0-51.0); %Neutrophils 90.4 % (42.0-75.0); Hemoglobin 11.8 g/dL (12.0-16.0); Mean Corpuscular Hemoglobin 32.3 pg (27.0-31.0); Mean Platelet Volume 8.9 fL (7.4-10.4); Platelet Count 204 thou/uL (130-400); RBC Distribution Width 12.3 % (11.5-14.5); Red Blood Cell (RBC) Count 3.67 mill/uL (4.20-5.40); White Blood Cell (WBC) Count 10.9 thou/uL (4.8-10.8)
[2019-01-19 06:57] LABS: Anion Gap 13 mmol/L (10-20); BUN (Urea Nitrogen) 22 mg/dL (9.8-20.1); Calc. Creatinine Clearance 39 mL/min (70-130); Calcium 7.9 mg/dL (7.8-10.44); Carbon Dioxide 22 mmol/L (23-31); Chloride 101 mmol/L (98-107); Estimated GFR-MDRD 61; Glucose 203 mg/dL (83-110); Phosphorus 2.2 mg/dL (2.3-4.7); Sodium 132 mmol/L (136-145)
[2019-01-19] MEDS ORDERED: predniSONE 20 MG TAB PO SCH (08:00)
[2019-01-19] MEDS: methylPREDNISolone Sod Succ 40 MG VIAL IVP SCH (08:22)
[2019-01-19] MEDS: Famotidine/PF 20 mg/2ml Vial SLOW IVP SCH ×2 (08:22→21:48)
[2019-01-19] MEDS: Enoxaparin Sodium 40 MG/0.4 ML SYRINGE SC SCH (08:22)
--- NOTE | 2019-01-19 08:37 | RAD ---
SINGLE VIEW OF THE CHEST: COMPARISON: 01/17/2019. HISTORY: Ventilated patient with respiratory failure. FINDINGS: A single view of the chest shows a normal-size cardiomediastinal silhouette. An endotracheal tube is seen with its tip at the lower border of the clavicles. An NG tube is seen in the stomach. There i s no evidence of consolidation, mass, or pleural effusion. IMPRESSION: No evidence of acute cardiopulmonary disease. POS: [facility]
[2019-01-19] MEDS ORDERED: Sodium Chloride 0.9% 500 ML IV SCH (10:30)
[2019-01-19] MEDS ORDERED: Sodium Phosphate 30 MMOL in Sodium Chloride 0.9% 250 ML 250 ML IVPB SCH (13:00)
--- NOTE | 2019-01-19 13:06 | PRG ---
DATE OF SERVICE: 01/19/2019 SERVICE: Pulmonary Medicine. INTERVAL HISTORY: The patient is doing okay from a metabolic standpoint. Respiratory west, she has horrendous lung disease. Whenever she wakes up from sedation, she becomes agitated and tachypneic. She then decompensates and starts getting smaller volume. As such, we will need to figure out a way to wake her up, a touch more smoothly. She cannot provide any additional elements of the history at this point, although she does indicate she does not have any chest discomfort and her pain is under good control. PHYSICAL EXAMINATION: VITAL SIGNS: Afebrile, pulse 83, blood pressure 109/48, respirations are 12, saturation 96% on 23% FiO2 and a PEEP of 5. GENERAL: The patient is intubated and sedated. HEENT: Normocephalic and atraumatic. Sclerae white. Conjunctivae pink. Oral mucosa is moist without lesions. LUNGS: Decent air entry. No crackles are present. There is a very prolonged expiratory phase. Polyphonic wheezing is noted. No rhonchi. HEART: Normal rate, regular. ABDOMEN: Soft, nontender, nondistended. There is no rebound. Bowel sounds are absent. GENITOURINARY: Damon catheter in place. NEUROLOGIC: Grossly nonfocal. LABORATORY DATA: WBC 10.9, hemoglobin 11.8, platelets 204,000. Creatinine 0.89, BUN 22. Basic metabolic profile is otherwise unremarkable. Phosphorus 2.2, magnesium 2.2. Blood cultures x2 are unremarkable. Influenza A and B are negative. IMAGING: Chest x-ray demonstrates no evidence of acute cardiopulmonary disease. The endotracheal tube is in excellent position, roughly 4 cm above the yuko. Bilateral costophrenic angles are sharp. Lungs are otherwise hyperinflated. There is a slight increase in density in the right upper lobe. Subtle infiltrate cannot be excluded. ASSESSMENT: 1. Acute hypoxic respiratory failure. 2. Chronic obstructive pulmonary disease with acute exacerbation. 3. Gross peritonitis secondary to perforated viscus. 4. Status post hemicolectomy, postop day #1. 5. Severe sepsis. 6. Dementia. DISCUSSION AND PLAN: I will put her on Precedex to see if this helps to liberate her from the other medications including morphine, and propofol, which knock her out completely and get rid of her respiratory drive too well. Hopefully, we can wake her up with very little agitation or anxiety, so that we can get a true reflection of what her lung process looks like. If we can get her on a spontaneous breathing trial with pressure support ventilation at 5/5, and she has a shallow breathing index under 100, I would opt to extubate her to BiPAP as she previously tolerated this just fine. Critical Care will continue to follow. CRITICAL CARE TIME: 30 minutes. Job ID: [id number]
[2019-01-19] MEDS: Sodium Chloride 0.45% 1,000 ML IV SCH (13:18)
[2019-01-19] MEDS ORDERED: Ondansetron PF 4 MG/2 ML Vial SLOW IVP PRN (18:45)
--- NOTE | 2019-01-19 21:05 | PDOC.GSPN ---
Surgery Progress Note: Subj - Subjective Narrative: So patient on morning rounds. She was weaning to extubate at that time and has since extubated. Her urine output was marginal so I ordered some additional IV fluids. Her hematocrit has dropped somewhat from preoperative but there is not much coming out of her SATYA and she didn't have much intraoperative blood loss. We will continue to watch all this. Her incisions looked good and her abdominal exam was benign. She denied any significant pain. No new recommendations. Surgery Progress Note: Obj - Vital signs Vital signs: Vital Signs - Most Recent Temp Pulse Resp BP Pulse Ox 98.2 F 108 H 26 H 112/51 L 98 01/19/19 20:00 01/19/19 14:09 01/19/19 14:09 01/19/19 13:15 01/19/19 14:09 Surgery Progress Note: Results - Labs Result Diagrams: 01/19/19 06:28 01/19/19 06:27
--- NOTE | 2019-01-19 22:51 | CON ---
DATE OF CONSULTATION: 01/19/2019 SUBJECTIVE: Ms. Downey's chart has been reviewed. She came in with a perforated colon. She has undergone resection. She is still on a ventilator. OBJECTIVE: VITAL SIGNS: Temperature 97.8, BP 112/51, pulse 85. GENERAL: She is intubated. She does awaken some. LUNGS: With bilateral breath sounds. HEART: Reveals no murmur. IMPRESSION: Perforated viscus. PLAN: I did talk with her son today. I have expressed to him the gravity of the situation. The patient's son does verbalize understanding. We will continue current management. Job ID: [id number]
[2019-01-20] MEDS: Sodium Chloride 0.45% 1,000 ML IV SCH (02:38)
[2019-01-20 05:12] LABS: Anion Gap 11 mmol/L (10-20); BUN (Urea Nitrogen) 19 mg/dL (9.8-20.1); Calc. Creatinine Clearance 47 mL/min (70-130); Calcium 7.3 mg/dL (7.8-10.44); Carbon Dioxide 24 mmol/L (23-31); Chloride 101 mmol/L (98-107); Estimated GFR-MDRD 65; Glucose 133 mg/dL (83-110); Potassium 4.1 mmol/L (3.5-5.1); Sodium 132 mmol/L (136-145)
[2019-01-20 05:25] LABS: Band 4 % (5-11); Hemoglobin 11.9 g/dL (12.0-16.0); Lymphocytes 6 % (21-51); MDiff Complete? YES; Mean Corpuscular HGB CONC 32.4 g/dL (32.0-36.0); Mean Corpuscular Hemoglobin 32.5 pg (27.0-31.0); Mean Platelet Volume 8.4 fL (7.4-10.4); Monocytes 4 % (0-10); Neutrophil 86 % (42-75); Platelet Count 206 thou/uL (130-400); RBC Distribution Width 12.5 % (11.5-14.5); Red Blood Cell (RBC) Count 3.66 mill/uL (4.20-5.40); White Blood Cell (WBC) Count 10.7 thou/uL (4.8-10.8)
[2019-01-20] MEDS: metroNIDAZOLE 500 MG in Premix Bag 1 BAG IVPB SCH ×3 (06:12→21:43)
--- NOTE | 2019-01-20 08:26 | PRG ---
DATE OF SERVICE: 01/20/2019 SUBJECTIVE: Ms. Downey has been extubated. She is awake and alert. She does recognize me. OBJECTIVE: VITAL SIGNS: Pulse is 106; blood pressure 142/58; temperature, she is afebrile; and O2 sat 99% on 1.5 L nasal cannula. LUNGS: Clear. HEART: Reveals no murmur. LABORATORY DATA: Her white blood cell count 10.7, hemoglobin 11.9, and hematocrit 36.8. Sodium 132, potassium 4.1, chloride 101, CO2 of 24, BUN 19, and creatinine 0.84. IMPRESSION: 1. She is stable postoperatively. 2. Chronic obstructive pulmonary disease. 3. She does have dementia, for which she is actively being treated. PLAN: Continue current treatment regimen. She will need long-term disposition at appropriate time. Job ID: [id number]
[2019-01-20] MEDS ORDERED: Acetaminophen 1,000 MG in Premix Bag 1 BAG IVPB PRN (09:50)
[2019-01-20] MEDS ORDERED: Morphine 4 MG/ML VIAL SLOW IVP PRN (09:50)
[2019-01-20] MEDS: methylPREDNISolone Sod Succ 40 MG VIAL IVP SCH (09:58)
[2019-01-20] MEDS: Enoxaparin Sodium 40 MG/0.4 ML SYRINGE SC SCH (09:58)
[2019-01-20] MEDS: Famotidine/PF 20 mg/2ml Vial SLOW IVP SCH ×2 (09:58→20:12)
--- NOTE | 2019-01-20 10:07 | PRG ---
DATE OF SERVICE: 01/20/2019 SERVICE: Pulmonary Medicine. INTERVAL HISTORY: The patient is doing fine from a respiratory standpoint. She is breathing comfortably. That being said, she is having a little bit of belching. She is not passing any gas. She feels more distended in her belly. Otherwise, there has been no interval change to her condition. PHYSICAL EXAMINATION: VITAL SIGNS: Afebrile, pulse 122, blood pressure 134/53, respirations 30, and saturation 93% on 2L nasal cannula. GENERAL: The patient is awake and alert, in no apparent distress. LUNGS: Reduced air entry with a prolonged expiratory phase. Wheezing is present. I do not appreciate any crackles. Rhonchi there, but cleared with cough. HEART: Normal rate and regular. ABDOMEN: Soft. Distended. Bowel sounds are hypoactive. : Damon catheter in place. NEUROLOGIC: Grossly nonfocal. LABORATORY DATA: WBC 10.7, hemoglobin 11.9, and platelets 206,000. Band count is only 4%. Sodium 132. Basic metabolic profile is otherwise unremarkable. Calcium 7.3. Urinalysis is unremarkable. Blood cultures x2 and influenza are negative. ASSESSMENT: 1. Acute on chronic hypoxic respiratory failure. 2. Chronic obstructive pulmonary disease with acute exacerbation. 3. Gross peritonitis secondary to perforated viscus. 4. Status post hemicolectomy, postoperative day 2. 5. Dementia. DISCUSSION AND PLAN: She successfully extubated yesterday. At this point, we will try to mobilize her. She has not passed any gas yet. She is belching quite a bit. If she develops nausea and starts vomiting, we will need to place an NG tube. Simethicone will be initiated to see if we can break up some of her gas tension. Mobilization efforts will be initiated. From my perspective, she is stable for transition to the surgical unit. Job ID: [id number]
[2019-01-20] MEDS: Simethicone Chewable 80 MG TAB PO SCH ×3 (10:48→19:52)
[2019-01-20] MEDS: Sodium Chloride 0.9% 1,000 ML IV SCH ×2 (10:48→23:46)
[2019-01-20] MEDS: Morphine 2 MG/ML SYRINGE SLOW IVP PRN (11:51)
[2019-01-20] MEDS ORDERED: Ondansetron PF 4 MG/2 ML Vial SLOW IVP PRN (12:09)
[2019-01-20] MEDS ORDERED: Baclofen 10 MG TAB PO PRN (14:39)
[2019-01-20] MEDS ORDERED: Sodium Chloride 0.9% 500 ML IV SCH (14:45)
--- NOTE | 2019-01-20 17:45 | PDOC.GSPN ---
Surgery Progress Note: Subj - Subjective Narrative: Heart rate still up, having colicky pain and muscle spasms intermittently. Minimal nausea but burping and not passing gas. Urine output marginal. Incisions look good, abdomen soft, minimal tenderness. Afebrile, other vitals ok. WBC, H/H stable. A/P) Concerned about tachycardia, but abdominal exam reassuring. Will give another IVF bolus since urine output marginal and continue to observe. May be pain related, will add baclofen for abdominal wall spasms. Looks like sinus tach but may check EKG. Surgery Progress Note: Obj - Vital signs Vital signs: Vital Signs - Most Recent Temp Pulse Resp BP Pulse Ox 98.6 F 113 H 17 112/51 L 99 01/20/19 12:00 01/20/19 14:07 01/20/19 14:07 01/19/19 13:15 01/20/19 14:07 Surgery Progress Note: Results - Labs Result Diagrams: 01/20/19 04:46 01/20/19 04:46
[2019-01-20] MEDS: Ondansetron PF 4 MG/2 ML Vial SLOW IVP PRN (18:02)
[2019-01-21 05:55] LABS: #Monocytes 0.6 thou/uL (0.11-0.59); %Basophils 0.1 % (0.0-1.0); %Eosinophils 0.2 % (0.0-10.0); %Lymphocytes 10.4 % (21.0-51.0); %Monocytes 6.2 % (0.0-10.0); Hemoglobin 11.1 g/dL (12.0-16.0); Mean Corpuscular HGB CONC 31.9 g/dL (32.0-36.0); Mean Corpuscular Hemoglobin 32.1 pg (27.0-31.0); Mean Platelet Volume 8.5 fL (7.4-10.4); Platelet Count 223 thou/uL (130-400); RBC Distribution Width 12.7 % (11.5-14.5); Red Blood Cell (RBC) Count 3.46 mill/uL (4.20-5.40); White Blood Cell (WBC) Count 9.7 thou/uL (4.8-10.8)
[2019-01-21] MEDS: metroNIDAZOLE 500 MG in Premix Bag 1 BAG IVPB SCH ×3 (06:05→21:15)
[2019-01-21 06:20] LABS: Anion Gap 11 mmol/L (10-20); BUN (Urea Nitrogen) 14 mg/dL (9.8-20.1); Calc. Creatinine Clearance 48 mL/min (70-130); Calcium 7.3 mg/dL (7.8-10.44); Carbon Dioxide 22 mmol/L (23-31); Chloride 106 mmol/L (98-107); Estimated GFR-MDRD 70; Glucose 163 mg/dL (83-110); Phosphorus 1.7 mg/dL (2.3-4.7); Potassium 4.1 mmol/L (3.5-5.1); Sodium 135 mmol/L (136-145)
[2019-01-21] MEDS: Ondansetron PF 4 MG/2 ML Vial SLOW IVP PRN ×2 (07:29→11:29)
[2019-01-21] MEDS: Morphine 2 MG/ML SYRINGE SLOW IVP PRN (07:29)
[2019-01-21] MEDS ORDERED: CCU Electrolyte Replacement 1 EACH FS SCH (08:30)
[2019-01-21] MEDS ORDERED: CCU ELECTROLYTE REPLACEMENT PROTOCOL FS PRN (08:57)
[2019-01-21] MEDS ORDERED: Potassium Chloride 40 MEQ in Premix Bag 1 BAG IVPB PRN (08:57)
[2019-01-21] MEDS ORDERED: Potassium Phosphate 12 MMOL in Sodium Chloride 0.9% 250 ML 250 ML IV PRN (08:57)
[2019-01-21] MEDS ORDERED: Potassium Chloride 20 MEQ TAB PO PRN (08:57)
[2019-01-21] MEDS ORDERED: Potassium Phosphate 15 MMOL in Sodium Chloride 0.9% 250 ML 250 ML IV PRN (08:57)
[2019-01-21] MEDS ORDERED: Potassium Phosphate 9 MMOL in Sodium Chloride 0.9% 100 ML IVPB PRN (08:57)
[2019-01-21] MEDS ORDERED: Potassium Chloride 40 MEQ in Sodium Chloride 0.9% 250 ML 250 ML IVPB PRN (08:57)
[2019-01-21] MEDS ORDERED: Magnesium 2 GM/50 ML 2 GM in Premix Bag 1 BAG IVPB PRN (08:57)
[2019-01-21] MEDS ORDERED: Magnesium Oxide 400 MG TAB PO PRN ×2 (08:57)
[2019-01-21] MEDS: methylPREDNISolone Sod Succ 40 MG VIAL IVP SCH (09:09)
[2019-01-21] MEDS: Famotidine/PF 20 mg/2ml Vial SLOW IVP SCH ×2 (09:09→20:10)
--- NOTE | 2019-01-21 10:07 | PRG ---
DATE OF SERVICE: 01/21/2019 SUBJECTIVE: Ms. Downey is awake, alert, resting comfortably. OBJECTIVE: VITAL SIGNS: Blood pressure is 145/64, pulse 122, and O2 sats 93% on 2 L. GENERAL: She appears to be alert, in no acute distress. HEENT: Unremarkable. NECK: Supple. Full range of motion. No masses. LUNGS: Clear. HEART: Reveals tachycardia without murmurs. LABORATORY DATA: Her hemoglobin is 11.1, hematocrit 34.9, and white blood count is 9.7. Sodium 135, potassium 4.1, chloride 106, CO2 of 22, BUN 14, and creatinine 0.79. IMPRESSION: 1. Status post bowel resection. 2. Postoperative tachycardia of unknown etiology. PLAN: I will review her medications to see if some of her medicines have been stopped that could possibly be related to her tachycardia. Obviously, it could be related to some of the nebulization treatments, generalized deconditioning. Otherwise, she appears to be stable. I am comfortable in sending her to the general floor. Job ID: [id number]
[2019-01-21] MEDS ORDERED: ISOVUE-370 76%-LOCM 1 ML ONE (10:22)
[2019-01-21] MEDS ORDERED: Iopamidol 370 76% 50 ML VIAL FS ONE (10:22)
[2019-01-21] MEDS ORDERED: Metoprolol Tartrate 5 MG/5 ML VIAL IVP SCH (11:00)
--- NOTE | 2019-01-21 12:02 | PDOC.GSPN ---
Surgery Progress Note: Subj - Subjective Narrative: Patient feels okay. She has had some nausea. Pain is no worse than yesterday. She is monitor and storage bin tender and the right lower quadrant and yenifer-incisionally but does not exhibit rigidity rebound or guarding. Urine output has improved but she still quite tachycardic. SATYA output is serosanguineous. She has passed a little gas and her nurse states that she has had a couple small bowel movements. Assessment/plan: Persistent tachycardia. I suspect that this is due to not receiving her beta jerald and I doubt that she has any anastomotic leak based on her exam and the fact that her tachycardia started on postop day one. Still, due to the persistence of her tachycardia, I decided to order a CT with contrast. I have reviewed that CT and don't see any evidence of leak. Contrast has passed into the distal transverse colon and I don't see any evidence of leak , obstruction or other problems. The patient continues to be nauseated so I'm leaving her on clears for now, but once this improves her diet can be advanced. Her beta jerald has been restarted and she also has an IV form ordered due to her nausea. Surgery Progress Note: Obj - Vital signs Vital signs: Vital Signs - Most Recent Temp Pulse Resp BP Pulse Ox 98.0 F 119 H 25 H 112/51 L 93 L 01/21/19 08:00 01/21/19 06:34 01/21/19 06:34 01/19/19 13:15 01/21/19 06:36 Surgery Progress Note: Results - Labs Result Diagrams: 01/21/19 05:35 01/21/19 05:35 Lab results: Laboratory Results - last 24 hr 01/21/19 01/21/19 05:35 05:35 WBC 9.7 RBC 3.46 L Hgb 11.1 L Hct 34.9 L MCV 101.0 H MCH 32.1 H MCHC 31.9 L RDW 12.7 Plt Count 223 MPV 8.5 Neutrophils % 83.0 H Lymphocytes % 10.4 L Monocytes % 6.2 Eosinophils % 0.2 Basophils % 0.1 Neutrophils # 8.0 H Lymphocytes # 1.0 L Monocytes # 0.6 H Eosinophils # 0.0 Basophils # 0.0 Sodium 135 L Potassium 4.1 Chloride 106 Carbon Dioxide 22 L Anion Gap 11 BUN 14 Creatinine 0.79 Estimated GFR (MDRD) 70 Glucose 163 H Calcium 7.3 L Phosphorus 1.7 L
[2019-01-21] MEDS: Enoxaparin Sodium 40 MG/0.4 ML SYRINGE SC SCH (12:41)
[2019-01-21] MEDS: Sodium Chloride 0.9% 1,000 ML IV SCH (12:43)
--- NOTE | 2019-01-21 13:16 | CT ---
CT ABDOMEN AND PELVIS WITH CONTRAST: Comparison: 01-18-19 History: Status post recent cholecystectomy and colonoscopy. Lower abdominal pain and inability to ke ep things down without vomiting. Patient is status post colectomy for perforation. Technique: Multiple contiguous axial images are obtained in a CT of the abdomen and pelvis with contr ast. PO contrast was administered. Coronal reformats were performed. FINDINGS: There is extensive air in the abdominal wall. Two bubbles of air are seen within the abdomen from rec ent surgery. Surgical drains are seen in the pelvis. No free fluid or stranding changes are seen in t he abdomen or pelvis. The gallbladder contains contrast likely secondary to excretion from prior contrast examination. The liver, kidneys, adrenal glands, spleen, and pancreas are unremarkable. The large and small bowel are unremarkable. Contrast has passed through the colon to the level of the rectum. No leak of the enteric contrast is seen at this time. A Damon catheter decompresses the urin gladys bladder. The reproductive organs are unremarkable. No abdominal or pelvic lymphadenopathy are seen. Atherosclerotic calcifications are seen in the aorta . Degenerative changes are seen in the spine. The visualized inferior thorax is unremarkable. IMPRESSION: Expected post-surgical changes without evidence of bowel perforation/leak. POS: [facility]
--- NOTE | 2019-01-21 15:10 | PQF ---
CLINICAL DOCUMENTATION IMPROVEMENT CLARIFICATION FORM: ICD-10 Updated PLEASE DO AN ADDENDUM TO THE PROGRESS NOTE WITH ANY DOCUMENTATION UPDATES OR ADDITIONS AND CARRY THROUGH TO DC SUMMARY. THANK YOU. DATE: 01/21/2019 ; 01/22/2019; 01/23/2019 ATTN: Dr. Rodrigues 01/26/2019 Please exercise your independent, professional judgment in responding to the clarification form. Clinical indicators are provided on the bottom of this form for your review Please check appropriate box(es): [ ] Sepsis due to perforated viscus due to recent polypectomy (12/2018) [ ] Sepsis due to perforated viscus not due to recent polypectomy (12/2018) [ ] Severe sepsis with acute organ dysfunction of Acute hypoxic respiratory failure. [ ] Other diagnosis [ ] Unable to determine In addition, please specify: Present on Admission (POA): [ ] Yes [ ] No [ ] Unable to determine For continuity of documentation, please document condition throughout progress notes and discharge summary. Thank You. CLINICAL INDICATORS - SIGNS / SYMPTOMS / LABS H&P 01/17: In the ER she was found to be severely hypoxic , down to the 80% BP 130/80, Pulse 92, Resp 27 lactic acid of 2.1 White blood cell count 15,500 01/18 ([place]): She was doing fine until she started having some abdominal discomfort about 2 days prior to presentation. Acute hypoxic respiratory failure. COPD with acute exacerbation. Abdominal pain in the right lower quadrant with peritoneal signs. /([place]) Likely bowel perforation, possible related to recent polypectomy. 3/3([place]) Gross peritonitis secondary to perforated viscus, status post right hemicolectomy Severe Sepsis RISKS: H&P: 78 yr old, with long hx of COPD and HTN. Memory loss with Alzheimer dementia. Last Colonoscopy in December 2018 for polyposis syndrome and history of malignant polyp 01/18 ([place]): She had a colonoscopy almost exactly a week ago with several polyps taken off. It was not until this morning she developed severe pain, but I suspected that probably is related to weakening and perforation on one of the polypectomy sites. TREATMENT: Operative Note 01/18: Laparoscopic hand-assisted r colectomy Order 01/18: Cipro 400 mg IV Order 01/18: Flagyl 500 mg IV Thank you, Diane (This form is maintained as a part of the permanent medical record) 2015 [employer]. All Rights Reserved Diane Rodriguez RN, BSN [email or web address] Office: [phone] [facility]
[2019-01-21] MEDS ORDERED: Sodium Phosphate 30 MMOL in Sodium Chloride 0.9% 250 ML 250 ML IVPB SCH (15:30)
--- NOTE | 2019-01-21 15:35 | PRG ---
DATE OF SERVICE: 01/21/2019 SERVICE: Pulmonary Medicine. INTERVAL HISTORY: The patient is doing fine from respiratory standpoint. Breathing very comfortably. She is on 2 L nasal cannula. She does not have any chest discomfort, nausea, or vomiting. Otherwise, she is in her usual state of health. PHYSICAL EXAMINATION: VITAL: Afebrile. Pulse 97, blood pressure 126/53, respirations 25, saturation 100% on 2 L nasal cannula. GENERAL: The patient is awake and alert, in no apparent distress. LUNGS: Reduced air entry with a prolonged expiratory phase. No wheezing or crackles are appreciated. HEART: Normal rate, regular. ABDOMEN: Soft, nontender, and nondistended. Bowel sounds are positive. MUSCULOSKELETAL: No cyanosis or clubbing. No pitting in the bilateral lower extremities. NEUROLOGIC: Grossly nonfocal. LABORATORY DATA: WBC 9.7, hemoglobin 11.1, and platelets 223,000. Sodium 135. Basic metabolic profile is otherwise unremarkable. Phosphorus 1.7. Bicarb 22. Blood cultures x2 and influenza A and B are unremarkable. IMAGING: CT of the abdomen and pelvis demonstrates postsurgical changes without bowel perforation or leak. ASSESSMENT: 1. Acute on chronic hypoxic respiratory failure. 2. Chronic obstructive pulmonary disease with acute exacerbation. 3. Gross peritonitis secondary to perforated viscus, status post hemicolectomy, postop day 3. 4. Dementia. DISCUSSION AND PLAN: I will replace the patient's phosphorus. We will continue our mobilization efforts. At this point, she is stable for transition to the floor. If she develops increasing nausea and vomiting, an NG tube may be indicated. That being said, she is starting to pass gas, which is very reassuring. Pulmonary will continue to follow until she more clearly turns the corner. We will continue our nebulized medications, antibiotics, and steroids. Job ID: [id number]
[2019-01-21] MEDS: Metoprolol Tartrate 5 MG/5 ML VIAL IVP SCH (20:13)
[2019-01-21] MEDS ORDERED: Morphine 4 MG/ML VIAL SLOW IVP PRN (23:08)
[2019-01-22] MEDS: Sodium Chloride 0.9% 1,000 ML IV SCH (03:07)
[2019-01-22] MEDS: metroNIDAZOLE 500 MG in Premix Bag 1 BAG IVPB SCH ×3 (05:49→21:10)
[2019-01-22 07:12] LABS: Anion Gap 10 mmol/L (10-20); BUN (Urea Nitrogen) 12 mg/dL (9.8-20.1); Calc. Creatinine Clearance 52 mL/min (70-130); Calcium 7.3 mg/dL (7.8-10.44); Carbon Dioxide 28 mmol/L (23-31); Chloride 102 mmol/L (98-107); Estimated GFR-MDRD 77; Glucose 121 mg/dL (83-110); Potassium 4.1 mmol/L (3.5-5.1); Sodium 136 mmol/L (136-145)
[2019-01-22 07:17] LABS: Phosphorus 2.3 mg/dL (2.3-4.7)
[2019-01-22] MEDS: Metoprolol Tartrate 5 MG/5 ML VIAL IVP SCH ×2 (08:56→20:18)
[2019-01-22] MEDS: methylPREDNISolone Sod Succ 40 MG VIAL IVP SCH (08:57)
[2019-01-22] MEDS: Enoxaparin Sodium 40 MG/0.4 ML SYRINGE SC SCH (08:57)
[2019-01-22] MEDS: Famotidine/PF 20 mg/2ml Vial SLOW IVP SCH ×2 (08:57→20:17)
--- NOTE | 2019-01-22 12:58 | PDOC.GSPN ---
Surgery Progress Note: Subj - Subjective Narrative: Patient is feeling better. Abdominal pain has diminished. Her nausea has resolved and she is not burping as much. She is passing gas and had multiple bowel movements yesterday which were soft. Incisions look good and SATYA output is serous. Heart rate has come down on beta blockers. Other vitals are good. Assessment/plan: Status post right colectomy for perforation doing well. Advance diet as tolerated. Advance activities as able. Surgery Progress Note: Obj - Vital signs Vital signs: Vital Signs - Most Recent Temp Pulse Resp BP Pulse Ox 97.7 F 82 12 117/72 97 01/22/19 12:34 01/22/19 12:34 01/22/19 12:34 01/22/19 12:34 01/22/19 12:34 Surgery Progress Note: Results - Labs Result Diagrams: 01/21/19 05:35 01/22/19 06:43 Lab results: Laboratory Results - last 24 hr 01/22/19 01/22/19 06:43 06:43 Sodium 136 Potassium 4.1 Chloride 102 Carbon Dioxide 28 Anion Gap 10 BUN 12 Creatinine 0.73 Estimated GFR (MDRD) 77 Glucose 121 H Calcium 7.3 L Phosphorus 2.3
[2019-01-22] MEDS ORDERED: ALPRAZolam 0.25 MG TAB PO PRN (13:49)
--- NOTE | 2019-01-22 20:27 | PRG ---
DATE OF SERVICE: 01/22/2019 SUBJECTIVE: Ms. Downey is awake and alert. She verbalizes no complaints. She has been having some p.o. intake. OBJECTIVE: VITAL SIGNS: Temperature 97.0, pulse 82, and BP 112/72. GENERAL: She is alert, she does not appear in any distress. She does recognize me as her examiner by name. LUNGS: Bilateral breath sounds. HEART: Reveals no murmur. ABDOMEN: Soft. Bowel sounds are present and active. LABORATORY DATA: Her creatinine is 0.73. IMPRESSION: 1. Status post exploratory laparotomy for perforated colon with status post colectomy. 2. She has had some postoperative tachycardia, which has now been controlled by re-starting of beta jerald. 3. It has been reported to me by family, she is having some mainly nighttime agitation, which we think is more related to nicotine withdrawal. PLAN: We will try to add a little bit of medication at night to help control some of her agitation issues. I doubt if a Nicoderm patch would be advisable at this time. Job ID: [id number]
[2019-01-23] MEDS: metroNIDAZOLE 500 MG in Premix Bag 1 BAG IVPB SCH ×3 (05:24→21:05)
[2019-01-23 05:44] LABS: Phosphorus 2.3 mg/dL (2.3-4.7)
[2019-01-23 05:46] LABS: Anion Gap 9 mmol/L (10-20); BUN (Urea Nitrogen) 10 mg/dL (9.8-20.1); Calc. Creatinine Clearance 49 mL/min (70-130); Calcium 7.8 mg/dL (7.8-10.44); Carbon Dioxide 30 mmol/L (23-31); Chloride 101 mmol/L (98-107); Estimated GFR-MDRD 72; Glucose 130 mg/dL (83-110); Potassium 4.1 mmol/L (3.5-5.1); Sodium 136 mmol/L (136-145)
[2019-01-23] MEDS: Ondansetron PF 4 MG/2 ML Vial SLOW IVP PRN (07:55)
--- NOTE | 2019-01-23 08:03 | PRG ---
DATE OF SERVICE: 01/23/2019 SUBJECTIVE: Ms. Downey is awake and alert. She verbalizes no complaints. OBJECTIVE: VITAL SIGNS: Temperature 97.8, blood pressure 158/76, and pulse 72. GENERAL: She is alert and active, in no distress. LUNGS: Clear. HEART: Reveals no murmur. ABDOMEN: Still diffusely tender. Bowel sounds are present and active. LABORATORY DATA: Electrolyte profile is normal. Blood cultures are negative. IMPRESSION: 1. An 78-year-old female, status post exploratory laparotomy and partial colectomy. 2. Chronic obstructive pulmonary disease. 3. Dementia. PLAN: Continue current treatment pattern. Hopefully, she can go to [place] early next week. Job ID: [id number]
[2019-01-23] MEDS: Famotidine/PF 20 mg/2ml Vial SLOW IVP SCH (09:51)
[2019-01-23] MEDS: methylPREDNISolone Sod Succ 40 MG VIAL IVP SCH (09:52)
[2019-01-23] MEDS: Metoprolol Tartrate 5 MG/5 ML VIAL IVP SCH (09:52)
[2019-01-23] MEDS: Enoxaparin Sodium 40 MG/0.4 ML SYRINGE SC SCH (09:52)
--- NOTE | 2019-01-23 12:22 | PRG ---
DATE OF SERVICE: 01/23/2019 SERVICE: Pulmonary Medicine. INTERVAL HISTORY: The patient is doing absolutely wonderful from respiratory standpoint. She really has not gotten out of bed today. The last time she got out of bed was yesterday. She also walked with physical therapy and was able to take several steps. She is able to achieve the level of function that she has at home. Otherwise, there has been no interval change to her condition. She does not have much of an appetite, but done typically breakfast. She is not passing gas currently and has some nausea, but no vomiting. PHYSICAL EXAMINATION: VITAL SIGNS: Afebrile, pulse 95, blood pressure 121/66, respirations 18, and saturation 98% on 1.5 L nasal cannula. GENERAL: The patient is awake and alert, in no apparent distress. LUNGS: Decent air entry. There is a prolonged expiratory phase. Wheezing is present. I do not appreciate any crackles, but she does not move really much air, so it is tough to appreciate. HEART: Normal rate and regular. ABDOMEN: Soft, nontender, and nondistended. Bowel sounds are positive. MUSCULOSKELETAL: No cyanosis or clubbing. There is no pitting in the bilateral lower extremities. NEUROLOGIC: Grossly nonfocal. LABORATORY DATA: Phosphorus 2.3. Basic metabolic profile is otherwise unremarkable. Creatinine 0.77, BUN 10. Urinalysis is negative. Blood cultures x2 and influenza A and B are negative. ASSESSMENT: 1. Chronic obstructive pulmonary disease with acute exacerbation. 2. Acute on chronic hypoxic respiratory failure, improved. 3. Gross peritonitis secondary to perforated viscus, status post hemicolectomy, postop day #5. 4. Dementia. DISCUSSION AND PLAN: The patient is doing fine from respiratory standpoint. We are going to continue her antibiotics, nebulized medications, and steroids to completion. We will watch her GI function very closely. In the meantime, we will try to prevent her from getting deconditioned by mobilizing her as much as she can tolerate. Pulmonary/Critical Care will continue to follow along. Job ID: [id number]
--- NOTE | 2019-01-23 14:26 | PDOC.GSPN ---
Surgery Progress Note: Subj - Subjective Narrative: Patient was documented to have emesis yesterday in the ins and outs, but the patient denies this. The nurse states that she has not had any vomiting today, although she has had some mild nausea, and has tolerated her diet. She continues to have bowel movements. Her abdominal pain is diminishing. She is getting up and around easier. Her SATYA output is still quite high but completely serous in color. Abdomen is soft and nondistended. Her incisions looked good and she has minimal right lower quadrant and yenifer-incisional tenderness. Assessment/plan: Status post right colectomy doing well overall. Dr. Martines is going to see her this weekend. I left her SATYA in, but expect the output to go down over the next couple days and expect that it will be removed tomorrow or the next day. I will be gone next week with Dr. Gamez is available on an as- needed basis. She can follow up with me in the clinic in 2 weeks' time. Surgery Progress Note: Obj - Vital signs Vital signs: Vital Signs - Most Recent Temp Pulse Resp BP Pulse Ox 98.1 F 88 12 137/74 90 L 01/23/19 13:31 01/23/19 13:31 01/23/19 13:31 01/23/19 13:31 01/23/19 13:31 Surgery Progress Note: Results - Labs Result Diagrams: 01/21/19 05:35 01/23/19 05:06 Lab results: Laboratory Results - last 24 hr 01/23/19 01/23/19 05:06 05:06 Sodium 136 Potassium 4.1 Chloride 101 Carbon Dioxide 30 Anion Gap 9 L BUN 10 Creatinine 0.77 Estimated GFR (MDRD) 72 Glucose 130 H Calcium 7.8 Phosphorus 2.3
[2019-01-23] MEDS ORDERED: Acetaminophen 325 MG TAB PO PRN (18:13)
[2019-01-23] MEDS ORDERED: traMADol HCl 50 MG TAB PO PRN (18:14)
[2019-01-23] MEDS: Famotidine 20 MG TAB PO SCH (21:06)
[2019-01-24] MEDS: Ondansetron PF 4 MG/2 ML Vial SLOW IVP PRN ×2 (03:32→12:27)
[2019-01-24] MEDS ORDERED: Promethazine HCl 6.25 MG in Sodium Chloride 0.9% 50 ML IVPB SCH (05:30)
[2019-01-24] MEDS: metroNIDAZOLE 500 MG in Premix Bag 1 BAG IVPB SCH ×3 (05:35→21:26)
[2019-01-24] MEDS: Famotidine 20 MG TAB PO SCH ×2 (08:34→21:26)
[2019-01-24] MEDS: Enoxaparin Sodium 40 MG/0.4 ML SYRINGE SC SCH (08:37)
--- NOTE | 2019-01-24 10:19 | CON ---
DATE OF CONSULTATION: 01/24/2019 SUBJECTIVE: The patient was asleep this morning. She is presently awake, conversing. No complaints of abdominal pain. She is yet to eat breakfast. She states she is not very hungry. OBJECTIVE: VITAL SIGNS: Temperature 98.4, pulse 91, respirations 18, pulse ox 95% on 2 L, blood pressure 158/79. GENERAL: No acute distress. HEART: Regular rate and rhythm. LUNGS: Clear. ABDOMEN: Soft, nontender. LABORATORY DATA: None. ASSESSMENT: 1. Postoperative day #6, status post exploratory laparotomy and right hemicolectomy for a perforated colon. 2. Chronic obstructive pulmonary disease, stable. 3. Dementia, stable. 4. Ukdae-[id number]-[id number] hypoxic respiratory failure, stable. 5. Postoperative tachycardia, stable. PLAN: 1. Continue routine postoperative care. 2. Continue to advance diet. 3. Hopefully discharge early next week. 4. Blood pressure is slightly elevated. We will continue to follow. Job ID: [id number]
--- NOTE | 2019-01-24 11:51 | PRG ---
DATE OF SERVICE: 01/24/2019 SUBJECTIVE: This morning, she is awake, alert, and responsive. Denies any pain or discomfort. She was nauseated last night. OBJECTIVE: VITAL SIGNS: Sats 90% on 1 L, temperature 98, pulse 91, blood pressure 152/79. CHEST: Decreased breath sounds. No wheezing. CARDIAC: Normal S1, S2. No gallops. ABDOMEN: No masses. ASSESSMENT: 1. Underlying chronic obstructive pulmonary disease, stable. 2. Peritonitis, status post lap. PLAN: Continue aggressive PT, antibiotics, supportive Care. We will follow. Job ID: [id number]
[2019-01-24] MEDS ORDERED: Scopolamine 1.5 mg/72 hour Patch TD SCH (14:15)
--- NOTE | 2019-01-24 16:11 | PRG ---
DATE OF SERVICE: 01/24/2019 SUBJECTIVE: This is an 78-year-old female, postop day #6, right colectomy. The patient continues to have some nausea. The patient did vomit once last night and states that it was clear. The patient continues to have high output of serous fluid from her SATYA drain. The patient's pain has been well controlled. She continues to have loose bowel movements. OBJECTIVE: VITAL SIGNS: Temperature 98.4, pulse 91, respirations 18, SpO2 of 95% on 2 L, blood pressure 158/79. GENERAL: The patient awake, alert, sitting up in the chair, in no distress. HEENT: Scleral edema. NECK: Trachea midline. No JVD. RESPIRATORY: Respirations even and unlabored, no distress. CARDIOVASCULAR: Regular rate and rhythm. No pedal edema. ABDOMEN: Soft, nontender, nondistended. SATYA drain with serous output. Midline incision healing. EXTREMITIES: Moves all extremities equal. Distal pulses 2+. LABORATORY DATA: There are no labs to evaluate today. DIAGNOSTICS: There are no diagnostics to review. ASSESSMENT: 1. Postop day #6, status post exploratory laparotomy with right hemicolectomy for a perforated colon. 2. History of chronic obstructive pulmonary disease. PLAN: We will continue the patient's pain regimen. We will continue to advance diet as tolerated. We will add scopolamine patch for the patient's nausea. We will leave the SATYA drain in at this time as it continues to have high output. We will also add Ensure to patient's diet. The patient is pending placement to a group home facility. The patient was examined with Dr. Martines during morning rounds. Job ID: [id number]
[2019-01-25] MEDS: metroNIDAZOLE 500 MG in Premix Bag 1 BAG IVPB SCH ×3 (05:43→21:08)
[2019-01-25] MEDS: Famotidine 20 MG TAB PO SCH ×2 (08:24→21:07)
[2019-01-25] MEDS: Enoxaparin Sodium 40 MG/0.4 ML SYRINGE SC SCH (08:25)
--- NOTE | 2019-01-25 13:29 | PRG ---
DATE OF SERVICE: 01/25/2019 SUBJECTIVE: The patient is doing well this morning. Son is at the bedside. She had a good breakfast. No complaints of any chest pain or abdominal pain. OBJECTIVE: VITAL SIGNS: Temperature 98.0, pulse 72, respirations 12, pulse ox 99 on 1.5 L, and blood pressure 119/58. HEART: Regular rate and rhythm. LUNGS: Clear. ABDOMEN: Soft and nontender. Normal bowel sounds. LABORATORY DATA: None. ASSESSMENT: 1. Postop day #7 status post exploratory lap with right hemicolectomy for perforated colon. 2. Chronic obstructive pulmonary disease, stable. 3. Dementia, stable. 4. Acute on chronic hypoxic respiratory failure, stable. 5. Postop tachycardia, stable. PLAN: 1. Continue present routine. 2. Continue to advance diet. 3. Placement to [facility] pending. Job ID: [id number]
--- NOTE | 2019-01-25 15:16 | PRG ---
DATE OF SERVICE: 01/25/2019 SUBJECTIVE: Ms. Downey is an 78-year-old woman, who is postoperative day #7, status post right hemicolectomy for bowel perforation. The patient reports passing flatus. She had a bowel movement day before yesterday. She reports adequate pain control. She is tolerating diet today. She did have a bout of emesis yesterday, but none since. OBJECTIVE: VITAL SIGNS: This morning include blood pressure 119/58, pulse 72, respiratory rate is 12, temperature is 98 degrees Fahrenheit, and oxygen saturation 99% on 2 L by nasal cannula oxygen. HEART: Reveals regular rate and rhythm. LUNGS: Clear to auscultation bilaterally. Breathing, regular and nonlabored. ABDOMEN: Soft and nondistended. Incision is intact, clean, and dry. NEUROLOGIC: Reveals no focal deficits present. Obie-[place] drain continues to return large amount of serous ascites, return of 570 mL in the last 24 hours. Urinary output is adequate. IMPRESSION: 1. Postop day #7, status post laparotomy with right hemicolectomy and primary anastomosis. 2. Large volume ascites, likely secondary to third space fluids. PLAN: We will discontinue indwelling Damon catheter. We will encourage the patient to increase activity per Physical and Occupational Therapy. Anticipate discharge to halfway facility once bed availability and insurance authorization has been secured. Job ID: [id number]
[2019-01-25 15:21] LABS: Anion Gap 10 mmol/L (10-20); BUN (Urea Nitrogen) 12 mg/dL (9.8-20.1); Calc. Creatinine Clearance 56 mL/min (70-130); Carbon Dioxide 27 mmol/L (23-31); Chloride 97 mmol/L (98-107); Estimated GFR-MDRD 72; Glucose 111 mg/dL (83-110); Magnesium 1.4 mg/dL (1.6-2.6); Phosphorus 2.8 mg/dL (2.3-4.7); Sodium 130 mmol/L (136-145)
[2019-01-26] MEDS: metroNIDAZOLE 500 MG in Premix Bag 1 BAG IVPB SCH (05:17)
--- NOTE | 2019-01-26 07:53 | PRG ---
DATE OF SERVICE: 01/26/2019 SUBJECTIVE: Ms. Downey is sitting up in bed. She has no medical complaints. OBJECTIVE: VITAL SIGNS: Temperature 98.4, blood pressure 144/76, and O2 sat 93% on 1.5 L. LUNGS: Clear. HEART: Reveals no murmur. ABDOMEN: Soft. Bowel sounds are present and active. LABORATORY DATA: Sodium 140, potassium 4.0, chloride 97, CO2 of 27, and creatinine 0.77. IMPRESSION: Stable postoperatively. PLAN: Probably could be discharged to [facility] facility at early stays. Job ID: [id number]
[2019-01-26] MEDS: Famotidine 20 MG TAB PO SCH (08:56)
[2019-01-26] MEDS: Enoxaparin Sodium 40 MG/0.4 ML SYRINGE SC SCH (08:56)
[2019-01-26] MEDS ORDERED: Magnesium 2 GM/50 ML 2 GM in Premix Bag 1 BAG IVPB SCH (09:00)
--- NOTE | 2019-01-26 11:34 | PRG ---
DATE OF SERVICE: 01/26/2019 SUBJECTIVE: This morning, she is better. She says she is less short of breath. OBJECTIVE: VITAL SIGNS: Saturations on room air 93% to 94%, pulse 92, temperature 98, and blood pressure 124/63. CHEST: Decreased breath sounds. No wheezing. CARDIAC: Normal S1 and S2. No gallops. ABDOMEN: No masses. LABORATORY DATA: Lytes are normal, except sodium is 130. BNP is normal. ASSESSMENT: 1. Chronic obstructive pulmonary disease, stable. 2. Postop laparoscopic right hemicolectomy anastomosis. PLAN: Disposition; apparently, custodial placement. Oral antibiotics as per Surgery. Follow up with Dr. Cisneros postdischarge. Job ID: [id number]
[2019-01-26 12:26] VITALS: BP 111/58; TEMP 98.5
[2019-01-26] MEDS ORDERED: Nystatin 500,000 UNITS/5 ML UDCUP SSW SCH (13:00)
--- NOTE | 2019-01-26 13:27 | PRG ---
DATE OF SERVICE: 01/26/2019 SUBJECTIVE: This is an 78-year-old woman, who is postop day #8 status post right hemicolectomy for bowel perforation. The patient reports passing flatus and also had a bowel movement last night. The patient continues to tolerate her diet and reports that her pain is adequately controlled. The patient denies any nausea or vomiting. SATYA drain was removed today by Dr. Johnson and dressing applied. The patient had estimatedly 280 mL in her drain of serous fluid. OBJECTIVE: VITAL SIGNS: Temperature 98.1, respirations 20, pulse 76, 95% SpO2 on 1.5 L nasal cannula, and blood pressure 124/63. GENERAL: The patient awake, alert, in no distress, sitting up in the bed. HEART: Regular rate and rhythm. EXTREMITIES: No pedal edema. LUNGS: Regular respirations and nonlabored. No distress. ABDOMEN: Soft and nondistended. Incision is intact and clean and dry without any drainage. NEUROLOGIC: Reveals no focal deficits. IMPRESSION: 1. Postop day #8 status post laparotomy with a right hemicolectomy and primary anastomosis. 2. Large volume ascites, likely secondary to third space fluids. 3. Oral candidiasis, likely secondary to IV antibiotics. PLAN: We will change all IV antibiotics to p.o. We will place the patient on nystatin swish and swallow. The patient is cleared by Surgery for discharge to a longterm facility. The patient needs to follow up with Dr. Richards in 2 weeks. The patient to continue p.o. antibiotics. The patient was examined today with Dr. Johnson. Job ID: [id number] MTDD
[2019-01-26] MEDS ORDERED: metroNIDAZOLE 500 MG TAB PO SCH (15:00)
[2019-01-26] MEDS ORDERED: Ciprofloxacin 500 MG TAB PO SCH (20:00)
== END 2019-01-26 15:03 | DRG 329 ==
LOC: SCSER 15:49 → IMCU/EMU 16:20 → CCU 01-18 20:16 → SURG A 01-21 15:44
PROVIDERS: ADMIT Family Medicine; ATTEND Family Medicine
PROC: 5A09357 Assistance with Respiratory Ventilation, Less than 24 Consecutive Hours, Continuous Positive Airway Pressure (ICD-10-PCS; principal; 2019-01-17)
PROC: 0DTF0ZZ Resection of Right Large Intestine, Open Approach (ICD-10-PCS; 2019-01-18)
DX: K91.89 Other postprocedural complications and disorders of digestive system (principal); K65.8 Other peritonitis; K63.1 Perforation of intestine (nontraumatic); J96.21 Acute and chronic respiratory failure with hypoxia; R57.1 Hypovolemic shock; J44.1 Chronic obstructive pulmonary disease with (acute) exacerbation; B37.0 Candidal stomatitis; R18.8 Other ascites; I10 Essential (primary) hypertension; I25.10 Atherosclerotic heart disease of native coronary artery without angina pectoris; I73.9 Peripheral vascular disease, unspecified; R00.0 Tachycardia, unspecified; G30.9 Alzheimer's disease, unspecified; F02.80 Dementia in other diseases classified elsewhere, unspecified severity, without behavioral disturbance, psychotic disturbance, mood disturbance, and anxiety; I25.2 Old myocardial infarction; Z86.010 Personal history of colon polyps; Z83.71 Family history of colonic polyps; Z87.891 Personal history of nicotine dependence; Z85.038 Personal history of other malignant neoplasm of large intestine; Y83.8 Other surgical procedures as the cause of abnormal reaction of the patient, or of later complication, without mention of misadventure at the time of the procedure
CPT/HCPCS: 36415; 71045; 74177; 80048; 80053; 81003; 81015; 82550; 82805; 83605; 83735; 83880; 84100; 84484; 85025; 87040; 87804; 88307; 93005; 93010; 94002; 94003; 94640; 94660; 96365; 96367; 96375; J0131; J0694; J0696; J0744; J1650; J1956; J2250; J2270; J2405; J2550; J2920; J2930; J3010; J3475; J7050; J7620; Q9966; Q9967; S0028

== ENCOUNTER 2019-06-04 12:27 | Emergency (ER) | payer MEDICARE, BC ==
--- NOTE | 2019-06-04 13:01 | RAD ---
SINGLE VIEW OF THE CHEST: COMPARISON: 01/19/2019. HISTORY: Weakness and COPD; syncope. FINDINGS: Single view of the chest shows a normal sized cardiomediastinal silhouette. There is no evidence of c onsolidation, mass, or pleural effusion. The bones are unremarkable. IMPRESSION: No evidence of acute cardiopulmonary disease. POS: [facility]
[2019-06-04 13:05] LABS: #Basophils 0.1 thou/uL (0.0-0.2); #Eosinphils 0.2 thou/uL (0.0-0.7); #Lymphocytes 2.1 thou/uL (1.20-3.40); #Monocytes 0.6 thou/uL (0.11-0.59); #Neutrophils 4.3 thou/uL (1.40-6.50); %Basophils 1.5 % (0.0-1.0); %Lymphocytes 28.2 % (21.0-51.0); %Monocytes 8.6 % (0.0-10.0); %Neutrophils 58.7 % (42.0-75.0); Hemoglobin 12.7 g/dL (12.0-16.0); Mean Corpuscular HGB CONC 32.4 g/dL (32.0-36.0); Mean Corpuscular Hemoglobin 31.8 pg (27.0-31.0); Mean Corpuscular Volume 98.1 fL (78.0-98.0); Platelet Count 216 thou/uL (130-400); RBC Distribution Width 12.4 % (11.5-14.5); Red Blood Cell (RBC) Count 4.01 mill/uL (4.20-5.40); White Blood Cell (WBC) Count 7.3 thou/uL (4.8-10.8)
[2019-06-04 13:14] LABS: PTT 26.5 SEC (22.9-36.1)
[2019-06-04 13:15] LABS: D-Dimer Test 0.62 *mcg/mL (0.27-0.43)
[2019-06-04 13:23] LABS: ALT (SGPT) 15 U/L (8-55); AST (SGOT) 16 U/L (5-34); Albumin 3.7 g/dL (3.4-4.8); Alkaline Phosphatase 56 U/L (40-150); Anion Gap 13 mmol/L (10-20); BUN (Urea Nitrogen) 20 mg/dL (9.8-20.1); Bilirubin, Total 0.8 mg/dL (0.2-1.2); CK (CPK) 40 U/L (29-168); Calc. Creatinine Clearance 0 mL/min (70-130); Calcium 8.9 mg/dL (7.8-10.44); Carbon Dioxide 32 mmol/L (23-31); Chloride 99 mmol/L (98-107); Estimated GFR-MDRD 37; Glucose 82 mg/dL (83-110); Potassium 4.5 mmol/L (3.5-5.1); Protein, Total 6.7 g/dL (6.0-8.3); Sodium 139 mmol/L (136-145)
[2019-06-04 13:24] LABS: CKMB 0.6 ng/mL (0-6.6)
== END 2019-06-04 13:42 | disposition home or self-care (01) ==
LOC: SCSER 12:27
DX: R55 Syncope and collapse (principal); I25.10 Atherosclerotic heart disease of native coronary artery without angina pectoris; G30.9 Alzheimer's disease, unspecified; I10 Essential (primary) hypertension; J44.9 Chronic obstructive pulmonary disease, unspecified; F17.210 Nicotine dependence, cigarettes, uncomplicated; Z79.899 Other long term (current) drug therapy; Z79.82 Long term (current) use of aspirin; Z79.51 Long term (current) use of inhaled steroids
CPT/HCPCS: 71045; 80053; 82550; 82553; 83880; 84484; 85025; 85379; 85730; 93005; 94760

== ENCOUNTER 2019-06-29 13:27 | Inpatient (IN) | payer MEDICARE, BC ==
[2019-06-29] MEDS ORDERED: Sodium Chloride For Inhalation 0.9% 3 ML NEB ONE (13:31)
[2019-06-29] MEDS ORDERED: methylPREDNISolone Sod Succ/PF 125 MG/2 ML VIAL ONE ×2 (13:49→13:50)
[2019-06-29] MEDS ORDERED: Water For Inject, Bacteriostat 30 ML ONE (13:51)
--- NOTE | 2019-06-29 14:01 | RAD ---
EXAM: CHEST ONE VIEW HISTORY: Dyspnea COMPARISON: 06/24/2019 FINDINGS: The cardiac silhouette and pulmonary vasculature is within normal limits. The lungs are clear. A scle rotic density is again seen overlying the lateral right posterior 10th rib which is shown to represent a sclerotic density within the rib on CT exam obtained on 01/21/2019. This likely represents a small bone island. IMPRESSION: No acute cardiopulmonary process.
[2019-06-29 14:07] LABS: ALT (SGPT) 35 U/L (8-55); AST (SGOT) 18 U/L (5-34); Albumin 3.7 g/dL (3.4-4.8); Alkaline Phosphatase 48 U/L (40-150); Anion Gap 16 mmol/L (10-20); BUN (Urea Nitrogen) 35 mg/dL (9.8-20.1); Bilirubin, Total 1.1 mg/dL (0.2-1.2); CK (CPK) 28 U/L (29-168); Calc. Creatinine Clearance 0 mL/min (70-130); Calcium 8.2 mg/dL (7.8-10.44); Carbon Dioxide 27 mmol/L (23-31); Chloride 101 mmol/L (98-107); Estimated GFR-MDRD 25; Glucose 115 mg/dL (83-110); Potassium 4.8 mmol/L (3.5-5.1); Protein, Total 6.7 g/dL (6.0-8.3); Sodium 139 mmol/L (136-145)
[2019-06-29 14:15] LABS: Band 2 % (5-11); Eosinophils 1 % (0-10); Hemoglobin 14.6 g/dL (12.0-16.0); Lymphocytes 20 % (21-51); MDiff Complete? YES; Mean Corpuscular Hemoglobin 32.6 pg (27.0-31.0); Mean Platelet Volume 8.1 fL (7.4-10.4); Monocytes 8 % (0-10); Neutrophil 67 % (42-75); Platelet Count 296 thou/uL (130-400); Platelet Morphology Comment Appears Adequate; RBC Distribution Width 12.6 % (11.5-14.5); Red Blood Cell (RBC) Count 4.47 mill/uL (4.20-5.40); Stomatocytes SLIGHT = 2-5 cells (100X) (0-1/hpf); White Blood Cell (WBC) Count 14.3 thou/uL (4.8-10.8)
[2019-06-29 18:56] VITALS: BMI 24.0
[2019-06-29] MEDS ORDERED: cloNIDine 0.1 MG TAB PO PRN (19:47)
[2019-06-29] MEDS ORDERED: Acetaminophen 500 MG TAB PO PRN (19:47)
[2019-06-29] MEDS ORDERED: Calcium Carbonate 500 MG ChewTAB PO PRN (19:47)
[2019-06-29] MEDS ORDERED: Ondansetron PF 4 MG/2 ML Vial IVP PRN (19:47)
[2019-06-29] MEDS ORDERED: Diabetic Tussin 200 MG/10 ML UDCUP PO PRN (19:47)
[2019-06-29] MEDS ORDERED: HYDROcodone/Acetaminophen 5/325 mg Tablet PO PRN (19:47)
[2019-06-29] MEDS ORDERED: Ondansetron ODT 4 MG TAB PO PRN (19:47)
[2019-06-29] MEDS ORDERED: Benzonatate 100 MG CAP PO PRN (19:47)
[2019-06-29] MEDS ORDERED: Levalbuterol HCl 0.63 MG/3 ML NEB NEB PRN (19:53)
[2019-06-29] MEDS ORDERED: Spiriva 18 MCG CAP (Box of 5 Caps) INH SCH (21:00)
[2019-06-29] MEDS: Simvastatin 20 MG TAB PO SCH (21:12)
[2019-06-29] MEDS: cefTRIAXone\\ROCEPHIN 2 GM in Sodium Chloride 0.9% 100 ML IVPB SCH (22:14)
[2019-06-29] MEDS ORDERED: methylPREDNISolone Sod Succ/PF 125 MG/2 ML VIAL IVP SCH (23:59)
[2019-06-30] MEDS: methylPREDNISolone Sod Succ 40 MG VIAL IVP SCH ×5 (00:23→23:59)
--- NOTE | 2019-06-30 02:46 | HP ---
PRIMARY CARE PHYSICIAN: Levi Rodrigues MD CHIEF COMPLAINT: Shortness of breath. HISTORY OF PRESENT ILLNESS: The patient bounced back from ER visit approximately 5 days ago, placed on steroid burst, end-stage lung disease, on approximately 2.5 L nasal cannula chronically with triple therapy as outpatient regarding Spiriva and Dulera or equivalent. The patient denies any increase in sputum production or any fevers. Gets easily winded. Does have 12 hours a day of personal attendant. She states the patient is roughly at her baseline after breathing treatment and steroid burst IV from the Emergency Department. The patient denies any difficulties urinating or passing bowels right now. I spoke with daughter on the phone, verbalized concern of why the patient's lungs are not improving chronically, who verbalized understanding regarding chronic nature of COPD and end-stage lung disease. PAST MEDICAL HISTORY: COPD, coronary artery disease, hypertension, peripheral vascular disease, dementia, this is Alzheimer's, status post colectomy. MEDICATIONS: Listed as; 1. Potassium chloride 10 mEq twice daily. 2. Sertraline 25 mg at bedtime. 3. Furosemide 40 mg once daily. 4. Alprazolam 0.25 mg one tablet twice daily. 5. Tramadol 50 mg p.r.n. pain q.6 hours. 6. Megace 15 mL before meals. 7. Namenda 10 mg. 8. Metoprolol 25 mg twice daily. 9. DuoNebs q.6 hours p.r.n. cough, wheeze. 10. Amlodipine 5 mg daily. 11. Simvastatin 20 mg daily. 12. Symbicort 60/4.5 two puffs twice daily. 13. Spiriva 2 inhalations twice daily. 14. Aspirin 81 mg. 15. Nystatin topical p.r.n. to affected areas. 16. Most recently 20 mg of prednisone, 3 tabs, taper q.3 days. SOCIAL HISTORY: Former smoker, quit in 2012. LABORATORY WORK: White blood cell count of 14.3, neutrophil percent of 67. BNP of 30. Sodium of 139, potassium of 4.8, creatinine of 1.9, GFR of 25, AST of 18, ALT of 35, albumin of 3.7. Chest x-ray, hyperinflation consistent with the patient's emphysema. No acute infiltrates. PHYSICAL EXAMINATION: VITAL SIGNS: On arrival to floor, temperature of 98.4, pulse of 88, oxygen saturation 99% on 3 L nasal cannula, blood pressure of 173/78. GENERAL: The patient is in mild respiratory distress, otherwise alert. HEENT: Head is normocephalic and atraumatic. Extraocular movements are intact. Oral mucosa is moist. NECK: Supple. HEART: Regular rate and rhythm at time of exam. LUNGS: With poor air movement. End-expiratory wheezes bilaterally. No rhonchi or rales. ABDOMEN: Soft, nontender. Positive bowel sounds throughout. EXTREMITIES: No cyanosis or edema. NEUROLOGIC: The patient is alert and oriented x2. No focal deficits. Speech is normal. Nasal cannula in place. ASSESSMENT AND PLAN: Chronic obstructive pulmonary disease exacerbation of end-stage lung disease. Continuing on steroid, antibiotic Rocephin and escalating steroids to IV. Continuing scheduled and p.r.n. breathing treatments. We will consult Pulmonology for any further recommendations. Continuing triple therapy regarding inhalation of Spiriva and Dulera inpatient formulary. Continuing the patient's blood pressure medications and aspirin and statin as outpatient for history of coronary artery disease. We will handoff to Dr. Levi Rodrigues tomorrow. Job ID: [id number]
[2019-06-30] MEDS: Mometasone/Formoterol 120 PUFF INHALER INH SCH ×2 (07:38→19:12)
[2019-06-30] MEDS: Amlodipine 5 MG TAB PO SCH (08:13)
[2019-06-30] MEDS: Aspirin Chewable 81 MG TAB PO SCH (08:14)
[2019-06-30] MEDS: Famotidine 20 MG TAB PO SCH (08:14)
--- NOTE | 2019-06-30 08:18 | PRG ---
DATE OF SERVICE: 06/30/2019 SUBJECTIVE: Ms. Downey was admitted with COPD yesterday. She currently states she is feeling a little bit better. She notes no complaints at this time. OBJECTIVE: VITAL SIGNS: Her blood pressure is 157/80, O2 saturation is 98% on 2 L, and temperature 98.2. LUNGS: Reveal bilateral breath sounds with no wheezes. She is using some accessory muscles for breathing. HEART: Reveals a regular rate and rhythm. No murmurs, gallops, or rubs. IMPRESSION: Exacerbation of chronic obstructive pulmonary disease. PLAN: 1. Pulmonary consult today. 2. She is not on IV steroids. We will add IV Solu-Medrol now. Job ID: [id number]
[2019-06-30] MEDS: ALPRAZolam 0.25 MG TAB PO PRN (11:03)
[2019-06-30] MEDS ORDERED: Non-Formulary Item 1 EACH (Famotidine 20 MG) PO PRN (12:58)
[2019-06-30] MEDS ORDERED: Acetaminophen 325 MG TAB PO PRN (12:58)
[2019-06-30] MEDS ORDERED: Famotidine 20 MG TAB PO PRN (13:11)
[2019-06-30 15:27] LABS: Actual Bicarbonate (HCO3a) 23.4 mEq/L (22-28); Base Excess (BEa) -0.1 mEq/L (-2.0 to +3.0); CO2 Tension 34.5 mmHg (35.0-45.0); Calcium, Ionized 1.13 mmol/L (1.12-1.30); Carboxyhemoglobin (COHb) 0.4 gm% (0.0-3.0); Hemoglobin (Hb) 13.4 g/dL (12.0-16.0); O2 Tension (PaO2) 86.8 mmHg (> 60.0); Potassium - ABG Lab 4.66 mmol/L (3.70-5.30); pH, Arterial 7.45 (7.35-7.45)
[2019-06-30] MEDS ORDERED: Potassium Chloride 20 MEQ TAB PO SCH (17:00)
[2019-06-30] MEDS: Potassium Chloride 10 MEQ TAB PO SCH (17:03)
--- NOTE | 2019-06-30 18:32 | CON ---
DATE OF CONSULTATION: 06/30/2019 CONSULTING PHYSICIAN: Levi Rodrigues MD REASON FOR CONSULTATION: COPD exacerbation. HISTORY OF PRESENT ILLNESS: The patient is an 79-year-old female with severe COPD, who comes to the hospital with increasing shortness of breath over the last 2 weeks. She is at the point where she says she is ready to give up on life. She has had some cough, some sputum production, but no subjective fever or chills. She swears that she is not smoking. PAST MEDICAL HISTORY: 1. Severe COPD. 2. Coronary artery disease. 3. Hypertension. 4. Peripheral vascular disease. 5. Alzheimer-type dementia. PAST SURGICAL HISTORY: Colectomy. MEDICATIONS: Prior to admission her pulmonary medications have included, 1. Symbicort 160/4.5, two puffs twice daily. 2. Spiriva 2 puffs daily. 3. Albuterol ipratropium nebulization solution as needed. SOCIAL HISTORY: The patient quit smoking back in January. FAMILY MEDICAL HISTORY: Unremarkable. ALLERGIES: SULFA . REVIEW OF SYSTEMS: Remarkable for dyspnea, cough, congestion. Otherwise, 12-point review of systems are negative. PHYSICAL EXAMINATION: VITAL SIGNS: Temperature 98.2, pulse 80, respirations 16, O2 saturation 97% on 2 L, and blood pressure 138/64. GENERAL: She is awake and alert, and in no overt distress. HEENT: Unremarkable. NECK: No adenopathy, JVD, or bruits. LUNGS: She has tight end expiratory wheezing bilaterally. CARDIOVASCULAR: S1 and S2 regular without murmur. ABDOMEN: Soft, nontender to palpation. EXTREMITIES: No clubbing, cyanosis, or edema. LABORATORY DATA: White blood cell count 14.3, hematocrit 43, and platelet count 296. Sodium 139, potassium 4.8, chloride 101, CO2 of 27, BUN 35, creatinine 1.9, and glucose 115. Previous blood gas in January showed a pCO2 of 39. She has not had one done during this admission. IMAGING STUDIES: Chest x-ray demonstrates hyperinflation without evidence of mass, effusion, or infiltrate. Last PFTs in 2012 at this facility demonstrated FEV1 of 0.73 L, which is 41% predicted. ASSESSMENT: 1. Severe chronic obstructive pulmonary disease, currently exacerbated symptoms. 2. Acute on chronic hypoxemic respiratory failure. PLAN: I would go ahead and treat her with antibiotics, nebulization treatments, and IV steroids as you are doing. I will check a blood gas, see where CO2 level is. I think she might be a good candidate for a Trilogy ventilator at home, so I have asked the career services representative to see her. I will follow with you. Job ID: [id number]
[2019-06-30] MEDS ORDERED: Non-Formulary Item 1 EACH (Melatonin [Melatonin] 10 MG) PO SCH (21:00)
[2019-06-30] MEDS: Melatonin 3 MG TAB PO SCH (21:43)
[2019-06-30] MEDS: Simvastatin 20 MG TAB PO SCH (21:44)
[2019-06-30] MEDS: cefTRIAXone\\ROCEPHIN 2 GM in Sodium Chloride 0.9% 100 ML IVPB SCH (21:44)
[2019-07-01] MEDS: methylPREDNISolone Sod Succ 40 MG VIAL IVP SCH ×4 (05:23→23:44)
[2019-07-01] MEDS: Mometasone/Formoterol 120 PUFF INHALER INH SCH ×2 (07:41→18:20)
[2019-07-01] MEDS: Amlodipine 5 MG TAB PO SCH (08:28)
[2019-07-01] MEDS: Potassium Chloride 10 MEQ TAB PO SCH ×2 (08:28→18:05)
[2019-07-01] MEDS: Aspirin Chewable 81 MG TAB PO SCH (08:28)
[2019-07-01] MEDS: Famotidine 20 MG TAB PO SCH (08:28)
[2019-07-01] MEDS: Furosemide 40 MG TAB PO SCH (08:28)
--- NOTE | 2019-07-01 09:57 | PRG ---
DATE OF SERVICE: 07/01/2019 SUBJECTIVE: She feels a little better today. She had no acute complaints. OBJECTIVE: VITAL SIGNS: Temperature is 98.9, pulse 78, respirations 20, O2 saturation 99% on 2 L, and blood pressure 153/67. HEENT: Unremarkable. NECK: No JVD. LUNGS: Diminished breath sounds, but no active wheezing. CARDIAC: S1, S2. Regular. ABDOMEN: Soft. EXTREMITIES: No edema. ASSESSMENT: Chronic obstructive pulmonary disease with exacerbation. PLAN: 1. I am ordering noninvasive ventilation for nighttime and as needed daytime use in the form of a Trilogy ventilator. Traditional home BiPAP would be insufficient for her chronic respiratory failure due to chronic obstructive pulmonary disease. 2. Continue steroids, nebs. 3. Initiate physical therapy. 4. Hopefully, home in 1 to 2 days. Job ID: [id number]
--- NOTE | 2019-07-01 12:44 | PRG ---
DATE OF SERVICE: 07/01/2019 SUBJECTIVE: Ms. Downey states she feels better. She is breathing a little bit easier. OBJECTIVE: VITAL SIGNS: Pulse 88, blood pressure 148/67, and O2 sats 99% on 2 L. GENERAL: She is alert and active, in no distress. LUNGS: Reveal bilateral wheezes. Less accessory muscle use with breathing today. HEART: Reveals a regular rate and rhythm. No murmurs, gallops, or rubs. IMPRESSION: Exacerbation of chronic obstructive pulmonary disease. PLAN: 1. Continue present therapy. 2. I have discussed with the patient hospice care, although she would notice that the hospice care may be necessary at some point. She feels like she is not ready to activate hospice care at this time. Hopefully, if she improves even more by tomorrow, we can think about or Saturday discharge. Job ID: [id number]
[2019-07-01] MEDS: Melatonin 3 MG TAB PO SCH (20:07)
[2019-07-01] MEDS: cefTRIAXone\\ROCEPHIN 2 GM in Sodium Chloride 0.9% 100 ML IVPB SCH (20:07)
[2019-07-01] MEDS: Simvastatin 20 MG TAB PO SCH (20:08)
[2019-07-02] MEDS: methylPREDNISolone Sod Succ 40 MG VIAL IVP SCH ×3 (05:30→17:19)
--- NOTE | 2019-07-02 07:37 | CON ---
DATE OF CONSULTATION: 07/02/2019 SUBJECTIVE: The patient is sitting up in a chair. She looks much better. She seems more awake and alert. She verbalizes no complaints. OBJECTIVE: VITAL SIGNS: Temperature 98.1, BP 137/72, O2 saturations 96% on 2 L. LUNGS: Bilateral breath sounds. No wheezes. She is moving air much better. HEART: Reveals no murmur. Regular rate and rhythm. EXTREMITIES: No edema. No cyanosis. IMPRESSION: Exacerbation of chronic obstructive pulmonary disease, improved. PLAN: The patient is to remain in the hospital today, probably could start thinking about going home tomorrow. She will need home health care with home physical therapy, also set up for her breathing machine. Job ID: [id number]
[2019-07-02] MEDS: Mometasone/Formoterol 120 PUFF INHALER INH SCH ×2 (07:48→19:22)
[2019-07-02] MEDS: Potassium Chloride 10 MEQ TAB PO SCH ×2 (08:40→17:19)
[2019-07-02] MEDS: Furosemide 40 MG TAB PO SCH (08:40)
[2019-07-02] MEDS: Amlodipine 5 MG TAB PO SCH (08:40)
[2019-07-02] MEDS: Famotidine 20 MG TAB PO SCH (08:41)
[2019-07-02] MEDS: Aspirin Chewable 81 MG TAB PO SCH (08:41)
[2019-07-02] MEDS: ALPRAZolam 0.25 MG TAB PO PRN (11:39)
--- NOTE | 2019-07-02 18:00 | PRG ---
DATE OF SERVICE: 07/02/2019 SERVICE: Pulmonary Medicine. INTERVAL HISTORY: The patient is doing okay from a respiratory standpoint. She has no complaints of chest discomfort, nausea, or vomiting. She just took a shower and so she is a visibly winded. Her breathing strategy for severe COPD is quite poor. People have made multiple attempts at training her, had her breathing through the nose and out through pursed lips. Because of her cognitive impairment, she has a hard time remembering the way of breathing that helps her. Otherwise, there has been no interval change to her condition. She is going to try using the Trilogy ventilator this evening. Hopefully, we will be able to work out a couple of small kinks while we have her in custody. PHYSICAL EXAMINATION: VITAL SIGNS: Afebrile. Pulse 82, blood pressure 135/70, respirations 20, and saturation 96% on 2 L nasal cannula. GENERAL: The patient is awake and alert, in no apparent distress. LUNGS: There is decreased air entry. Prolonged expiratory phase present. No wheezing or rhonchi appreciated, though she is not moving enough air to appreciate these things. HEART: Normal rate. Regular. ABDOMEN: Soft, nontender, nondistended. Bowel sounds are positive. MUSCULOSKELETAL: No cyanosis or clubbing. No pitting in the bilateral lower extremities. NEUROLOGIC: Grossly nonfocal. LABORATORY DATA: WBC 14.3, hemoglobin 14.6, platelets 296,000. Urinalysis is unremarkable. Creatinine 1.94, is continuing to trend upward. Liver function studies are otherwise unremarkable. ASSESSMENT: 1. Chronic obstructive pulmonary disease with acute exacerbation. 2. Anxiety. 3. Dementia. DISCUSSION AND PLAN: We are going to see whether or not she will qualify for Trilogy. Based on her most recent ABGs, I do not know that we are going to be able to set it up in the outpatient setting. She may benefit from an outpatient pulmonary rehabilitation, because of her cognitive impairment, I do not know if she is going to have significant long-lasting effect from anything like this. From my perspective, the patient has returned to her usual state of health and is a good candidate for dismissal from the hospital. Job ID: [id number]
[2019-07-02] MEDS ORDERED: predniSONE 20 MG TAB PO SCH ×2 (18:15→23:59)
[2019-07-02] MEDS: Simvastatin 20 MG TAB PO SCH (21:03)
[2019-07-02] MEDS: Melatonin 3 MG TAB PO SCH (21:03)
[2019-07-03] MEDS: Mometasone/Formoterol 120 PUFF INHALER INH SCH (07:00)
[2019-07-03 07:28] VITALS: BP 127/73; TEMP 98.3
--- NOTE | 2019-07-03 08:05 | PRG ---
DATE OF SERVICE: 07/03/2019 SUBJECTIVE: Ms. Downey is sitting up in a chair. She is resting fairly comfortably. She is using some accessory muscles of breathing, but she does not profess to be short of breath. OBJECTIVE: VITAL SIGNS: O2 saturations 97% on room air and BP 110/74. LUNGS: Bilateral breath sounds. No wheezes. HEART: Reveals a regular rate and rhythm. No murmurs, gallops, or rubs. Last night, she used the Trilogy sleeping system, which she felt like did offer her a good response. IMPRESSION: Exacerbation of chronic obstructive pulmonary disease. PLAN: She is going to be transferred home with home health care today. Use of her new Trilogy sleeping unit. Follow up with me in 1 week. Job ID: [id number]
--- NOTE | 2019-07-03 08:09 | DIS ---
DATE OF ADMISSION: 06/29/2019 DATE OF DISCHARGE: 07/03/2019 DISCHARGE DIAGNOSIS: Exacerbation of chronic obstructive pulmonary disease. HOSPITAL SUMMARY: This is an 79-year-old female with known history of COPD, who presented to the emergency room complaining of shortness of breath, difficulty breathing. She was tried multiple nebulizations there. She did not respond to initial therapy as well as IV steroids. She subsequently was admitted to the hospital. She was begun on further breathing treatments and higher dose IV steroids. Pulmonary was consulted. She was placed on prophylactic antibiotics. Her course was one of slow steady improvement. The patient also suffers from dementia. Family briefly entertained the idea at a hospice consult, but the patient responded well to therapy and by 07/02/2019, she can be discharged home. DISCHARGE MEDICATIONS: At this time are; 1. Alprazolam 0.25 mg b.i.d. 2. Z-timothy/Zithromax 250 mg daily. 3. Prednisone 20 mg daily. 4. Additionally, she was maintained on her home medications. 5. Tylenol as needed for pain. 6. Amlodipine 5 mg daily. 7. Aspirin 81 mg daily. 8. Symbicort inhaler. 9. Formoterol inhaler. 10. Calcium carbonate. 11. Famotidine 20 mg daily. 12. Furosemide 40 mg daily. 13. Hydrocodone as needed for pain. 14. DuoNeb 4 times daily. 15. Melatonin 10 mg at bedtime. 16. daily. 17. Metoprolol 25 mg daily. 18. Potassium chloride 10 mEq daily. 19. Sertraline 25 mg daily. FOLLOWUP: She will be seen in followup in my office in 1 week. Additionally, she had Trilogy face mask system sent home with her as well. Job ID: [id number]
[2019-07-03] MEDS: Potassium Chloride 10 MEQ TAB PO SCH (08:33)
[2019-07-03] MEDS: Furosemide 40 MG TAB PO SCH (08:34)
[2019-07-03] MEDS: Amlodipine 5 MG TAB PO SCH (08:34)
[2019-07-03] MEDS: Aspirin Chewable 81 MG TAB PO SCH (08:35)
[2019-07-03] MEDS: Famotidine 20 MG TAB PO SCH (08:35)
[2019-07-03] MEDS ORDERED: predniSONE 20 MG TAB PO SCH (09:00)
--- NOTE | 2019-07-08 08:16 | PQF ---
MARTHA MORENO RICHARD A [id number] CLINICAL DOCUMENTATION CLARIFICATION FORM: POST DISCHARGE Addendum to original discharge summary date: ____ Late entry note date: __ DATE:07-08-19 ATTN:Levi Miller Please exercise your independent, professional judgment in responding to the clarification form. Clinical indicators are provided on the bottom of this form for your review Can you please specify Acute on chronic hypoxemic respiratory failure is ruled in or ruled out during this encounter? Please check appropriate box(s) to clarify if the following diagnosis has been ruled in or ruled out: Acute on chronic hypoxemic respiratory failure [ ] Ruled in diagnosis [ ] Continue to treat [ ] Resolved [ ] Ruled out diagnosis [ ] Cannot rule out diagnosis [ ] Other diagnosis please specify: [ ] Unable to determine For continuity of documentation, please document condition throughout progress notes and discharge summary. Thank You. CLINICAL INDICATORS: H&P 06/[address] Momin Chief complaint: Shortness of breath H&P 06/[address] Momin The patient bounced back from ER approximately 5 days ago, placed on steroid burst, end stage lung disease , on approximately 2.5 L nasal cannula chronically H&P 06/[address] Momin COPD exacerbation of end stage lung disease Consult 06/[address] Chapa She had some cough, some sputum production, but no subjective fever or chills Consult 06/[address] Chapa Imaging- chest Xray demonstrate hyperinfiltration without evidence of mass effusion Consult 06/[address] Chapa Acute on chronic hypoxemic respiratory failure Consult 06/[address] Chapa I think she might be a good candidate for a trilogy ventilator at home Consult 07/[address] Chapa I am ordering noninvasive ventilation for night time and as needed daytime use in the form of trilogy ventilator Consult 07/[address] Chapa Traditional home BIPAP would be insufficient for her chronic respiratory failure due to chronic obstructive pulmonary disease PN 07/[address] Cisneros her breathing strategy for severe COPD is quite poor PN 07/[address] Cisneros Based on her most recent ABGs , I do not know that we are going to be able to set up in the outpatient setting DS 07/[address] Rodrigues Exacerbation of chronic obstructive pulmonary disease Laboratory ABG: PCO2=34.5 L, ABG pO2 86.8 H, ABG Deoxyhemoglobin=3.0 H RISK FACTOR: H&P 06/29- End stage lung disease H&P 06/29-Alzheimers H&P 06/29- COPD TREATMENTS: PN 06/29- Pulmo Consult H&P 2 L nasal cannula JAN 23- Douneb 3 ml JAN 23- Solumedrol 125 mg JAN 23-Calcium Carbonate 1,000 mg PO (This form is maintained as a part of the permanent medical record) 2014 [employer]. All Rights Reserved [email or web address] [not provided] [email or web address]
== END 2019-07-03 11:49 | disposition home health service (06) | DRG 189 ==
LOC: SCSER 13:27 → OBSVTOIN 15:00 → ERHOLD 15:00 → 2SW 18:23 → T4-A 07-01 13:20
PROVIDERS: ADMIT Family Medicine; ATTEND Family Medicine
DX: J96.21 Acute and chronic respiratory failure with hypoxia (principal); J44.1 Chronic obstructive pulmonary disease with (acute) exacerbation; I25.10 Atherosclerotic heart disease of native coronary artery without angina pectoris; I10 Essential (primary) hypertension; F41.9 Anxiety disorder, unspecified; I73.9 Peripheral vascular disease, unspecified; G30.9 Alzheimer's disease, unspecified; F02.80 Dementia in other diseases classified elsewhere, unspecified severity, without behavioral disturbance, psychotic disturbance, mood disturbance, and anxiety; I25.2 Old myocardial infarction; Z79.899 Other long term (current) drug therapy; Z79.82 Long term (current) use of aspirin; Z87.891 Personal history of nicotine dependence; Z90.49 Acquired absence of other specified parts of digestive tract; Z88.2 Allergy status to sulfonamides; Z88.8 Allergy status to other drugs, medicaments and biological substances; Z79.51 Long term (current) use of inhaled steroids
CPT/HCPCS: 71045; 80053; 82550; 82805; 83880; 85025; 94640; 94760; 96374; J0696; J2920; J2930; J3490; J7512; J7614; J7620